=== PATIENT | male | born 1960 | race Caucasian/White ===

== ENCOUNTER 2019-08-18 23:29 | Inpatient (IN) ==
[2019-08-19] MEDS ORDERED: methylPREDNISolone 125 MG/2 ML VIAL IV STA (00:22)
[2019-08-19] MEDS ORDERED: ALBUT/IPRATROP 3MG/0.5MG NEB 3 ML VIAL NEB STA (00:22)
[2019-08-19] MEDS ORDERED: SODIUM CHLORIDE 0.9% 1000ML 1,000 ML IV ONE (00:22)
--- NOTE | 2019-08-19 01:00 | Emergency Department Note ---
Entered by Nettie Ramirez acting as a scribe for Jordyn Lacy DO History of Present Illness General Chief complaint: Shortness of Breath/Dyspnea Stated complaint: SHORT OF BREATH Time Seen by Provider: 08/18/19 23:36 Source: patient History of Present Illness Provider complaint: shortness of breath Onset (ago): hour(s) 4 Location: chest Severity: similar to prior episodes Pain Consistency: + now resolved Relieved By: + none Associated symptoms: + chest pain and + cough; no fever/chills The patient is a 58 year old male who presents to the Emergency Room with complaints of shortness of breath which started at 1999 today. The patient reports that he has been experiencing worsening cough for the past 2 weeks. He notes that he was here 3 weeks ago for similar symptoms. He states that he was prescribed Prednisone which temporarily relieved his symptoms. He notes that wh en his symptoms returned today he was given a two breathing treatment which temporarily relieved his symptoms. The patient reports that he believed that there was black mold in his initial [facility] cell at [facility] and after transitioning facilities he has had worsening symptoms. He notes that his he has been experiencing sinus congestions and chest tightness. He notes that it is difficulty to breath. He reports that he has been coughing up white mucous, but denies any blood. He denies any fever or chills. He states that after oxygen given in the EMS and here at the ED, he feels slightly better. 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 EMS report to nursing staff was that pt was in severe distress and hypoxic on presentation to the [facility]. When EMS arrived, his sats were in the 70's and he was placed on a NRB at 15 lpm which improved his oxygenation. Home Medications Home Medications Medication Instructions Recorded Confirmed Type amlodipine 10 mg PO DAILY 07/21/19 08/19/19 History atorvastatin 40 mg PO DAILY 07/21/19 08/19/19 History levalbuterol tartrate [Xopenex HFA] 2 inh INHALATION QID PRN 07/21/19 08/19/19 History lisinopril 20 mg PO DAILY 07/21/19 08/19/19 History metformin 1,000 mg PO BID 07/21/19 08/19/19 History montelukast [Singulair] 10 mg PO PM 07/21/19 08/19/19 History ipratropium-albuterol 3 ml INHALATION QID PRN 08/19/19 08/19/19 History sodium chloride [Poole Nasal] 2 spray INTRANASAL QID PRN 08/19/19 08/19/19 History Allergies Allergy/AdvReac Type Severity Reaction Status Date / Time No Known Allergies Allergy Unverified 08/19/19 00:06 Past Med/Surg History Medical History HTN (hypertension) Hyperlipidemia Type II diabetes mellitus Pneumonia (Acute) Social History Preferred Language: Japanese Beliefs That Will Affect Care: None Current Living Situation: Other Feels Safe at Home: Yes Safety Concerns: Feels Safe At This Time Smoking Status: Never smoker Hx Alcohol Use: No Hx Substance Use: No Review of Systems See HPI for pertinent positives & negatives. and A total of 10 systems reviewed and were otherwise negative Physical Exam Vital Signs Vital Signs - 24 hr 08/18/19 23:30 08/18/19 23:48 08/19/19 00:03 Temperature 36.7 C Temperature Source Oral Sepsis Recent Fever Within 48 Hours No Sepsis Action Taken by Nursing No Action Required Pulse Rate 128 H 122 H Pulse Rate [Right Finger] Pulse Rate from SpO2 Sensor 122 H Pulse Rhythm Regular Respiratory Rate 17 18 Respiratory Effort / Characteristics Non-Labored Respiratory Depth Normal Normal Respiratory Pattern Regular Blood Pressure 125/85 138/93 Blood Pressure Mean 98 108 Blood Pressure Position Sitting Pulse Oximetry 92 94 Oxygen Delivery Method Nasal Cannula Nasal Cannula Oxygen Flow Rate 3 3 08/19/19 00:30 08/19/19 00:40 08/19/19 01:00 Temperature Temperature Source Sepsis Recent Fever Within 48 Hours Sepsis Action Taken by Nursing Pulse Rate 115 H 114 H Pulse Rate [Right Finger] 113 H Pulse Rate from SpO2 Sensor 116 H 114 H Pulse Rhythm Respiratory Rate 14 18 20 Respiratory Effort / Characteristics Non-Labored Spontaneous Respiratory Depth Respiratory Pattern Blood Pressure 121/76 124/78 Blood Pressure Mean 91 93 Blood Pressure Position Pulse Oximetry 93 90 94 Oxygen Delivery Method Nasal Cannula Nasal Cannula Nasal Cannula Oxygen Flow Rate 3 3 3 GENERAL: alert, well appearing, well nourished, no distress, non-toxic EYE EXAM: normal conjunctiva, PERRL and EOM's grossly intact OROPHARYNX: no exudate, no erythema, lips, buccal mucosa, and tongue normal and mucous membranes are moist NECK: supple, no nuchal rigidity, no adenopathy, non-tender LUNGS: Coarse breath sounds bilaterally, no wheezes, rhonchi, or rales. Normal chest wall mechanics HEART: no murmurs, S1 normal and S2 normal ABDOMEN: abdomen soft, non-tender, normo-active bowel sounds, no masses, no rebound or guarding. BACK: Back is symmetrical on inspection and there is no deformity, no midline tenderness, no CVA tenderness. SKIN: no rashes and no bruising UPPER EXTREMITIES: upper extremities are grossly normal. LOWER EXTREMITIES: No pitting edema. NEURO EXAM: Normal sensorium, cranial nerves II-XII grossly intact, normal speech, no gross weakness of arms, no gross weakness of legs. Procedures Abscess I/D Site: upper extremity Side (if applicable): left Local Anesthetic: lidocaine 1% and with epi Amount of anesthesia used (mL): 6 Technique: incised with #11 blade Amount of fluid expressed (mL): 5 Irrigation: Yes Packing used?: iodoform Course 2350: The patient was evaluated in room A12B, and a complete history and physical examination were performed. 0132: I&D performed to abscess noted in left axilla with surrounding cellulitis. See procedure note. 0145: Pt updated on elevated troponin and plan. 0200: Case discussed with [facility] hospitalist, Dr. Castle. D-Dimer added after elevated troponin noted. He will follow-up to decide on type of CT chest to be ordered. Consultations Consultation #1: Case discussed with [facility] hospitalist, Dr. Castle, for additional evaluation and management. Time: 02:00 Administered Medications Albuterol (Duoneb) 3 ml NEB Q4R PRN PRN Reason: Shortness Of Breath Or Wheezing Stop: 09/18/19 03:45 Last Admin: 08/20/19 07:12 Dose: 3 ml Documented by: [id number] Admin: 08/19/19 22:07 Dose: 3 ml Documented by: [id number] Admin: 08/19/19 13:58 Dose: 3 ml Documented by: [id number] Admin: 08/19/19 07:37 Dose: 3 ml Documented by: [id number] Amlodipine Besylate (Norvasc) 10 mg PO DAILY LUCY Stop: 09/18/19 08:59 Last Admin: 08/19/19 08:57 Dose: 10 mg Documented by: [id number] Aspirin (Ecotrin Ectab) 81 mg PO QAM LUCY Stop: 09/18/19 08:59 Last Admin: 08/20/19 12:38 Dose: Not Given Documented by: [id number] Admin: 08/19/19 08:57 Dose: 81 mg Documented by: [id number] Atorvastatin Calcium (Lipitor) 40 mg PO DAILY LUCY Stop: 09/18/19 08:59 Last Admin: 08/19/19 08:58 Dose: 40 mg Documented by: [id number] Enoxaparin Sodium (Lovenox) 40 mg SQ Q24H LUCY Stop: 09/18/19 08:59 Last Admin: 08/19/19 08:58 Dose: 40 mg Documented by: [id number] Sodium Chloride (Nss 1000ml) 1,000 mls @ 100 mls/hr IV .Q10H LUCY Stop: 09/18/19 02:44 Last Admin: 08/20/19 12:01 Dose: 100 mls/hr Documented by: [id number] Infusion: 08/20/19 12:01 Dose: 100 mls/hr Documented by: [id number] Admin: 08/20/19 03:58 Dose: 100 mls/hr Documented by: [id number] Infusion: 08/20/19 01:45 Dose: 100 mls/hr Documented by: [id number] Admin: 08/19/19 15:45 Dose: 100 mls/hr Documented by: [id number] Infusion: 08/19/19 14:19 Dose: 100 mls/hr Documented by: [id number] Admin: 08/19/19 04:19 Dose: 100 mls/hr Documented by: [id number] Methylprednisolone 40 mg/ (Syringe) 0.64 mls @ 1.5 mls/min IV Q6H LUCY Stop: 09/18/19 05:59 Last Admin: 08/20/19 12:02 Dose: 1.5 mls/min Documented by: [id number] Admin: 08/20/19 06:10 Dose: 1.5 mls/min Documented by: [id number] Admin: 08/19/19 23:15 Dose: 1.5 mls/min Documented by: [id number] Admin: 08/19/19 18:39 Dose: 1.5 mls/min Documented by: [id number] Admin: 08/19/19 12:19 Dose: 1.5 mls/min Documented by: [id number] Admin: 08/19/19 06:13 Dose: 1.5 mls/min Documented by: [id number] Doxycycline Hyclate 100 mg/ (Dextrose) 110 mls @ 50 mls/hr IV Q12H LUCY; Protocol Stop: 08/29/19 11:59 Last Admin: 08/20/19 12:01 Dose: 50 mls/hr Documented by: [id number] Infusion: 08/20/19 01:37 Dose: 0 mls/hr Documented by: [id number] Admin: 08/19/19 23:19 Dose: 50 mls/hr Documented by: [id number] Infusion: 08/19/19 14:49 Dose: 0 mls/hr Documented by: [id number] Admin: 08/19/19 12:19 Dose: 50 mls/hr Documented by: [id number] Ceftriaxone Sodium 1,000 mg/ (Dextrose) 50 mls @ 100 mls/hr IV Q24H LUCY; Protocol Stop: 08/26/19 05:59 Last Infusion: 08/20/19 07:17 Dose: 0 mls/hr Documented by: [id number] Admin: 08/20/19 06:24 Dose: 100 mls/hr Documented by: [id number] Infusion: 08/19/19 06:49 Dose: 0 mls/hr Documented by: [id number] Admin: 08/19/19 06:07 Dose: 100 mls/hr Documented by: [id number] Heparin Sodium/Dextrose (Heparin Sodium/Dextrose) 25,000 units in 500 mls @ 28 mls/hr IV .[id number] LUCY; Protocol Stop: 09/18/19 10:44 Last Admin: 08/20/19 07:16 Dose: 1,400 units/hr, 28 mls/hr Documented by: [id number] Cosigned by: [id number] Titration: 08/20/19 06:54 Dose: 1,400 units/hr, 28 mls/hr Documented by: [id number] Cosigned by: [id number] Titration: 08/20/19 03:53 Dose: 1,400 units/hr, 28 mls/hr Documented by: [id number] Cosigned by: [id number] Titration: 08/20/19 02:58 Dose: 0 units/hr, 0 mls/hr Documented by: [id number] Cosigned by: [id number] Titration: 08/19/19 23:09 Dose: 1,600 units/hr, 32 mls/hr Documented by: [id number] Cosigned by: [id number] Titration: 08/19/19 19:58 Dose: 1,600 units/hr, 32 mls/hr Documented by: [id number] Cosigned by: [id number] Titration: 08/19/19 15:17 Dose: 1,300 units/hr, 26 mls/hr Documented by: [id number] Cosigned by: [id number] Admin: 08/19/19 12:35 Dose: 1,300 units/hr, 26 mls/hr Documented by: [id number] Cosigned by: [id number] Insulin Aspart (Novolog Flexpen) 0 units SC ACHS LUCY Stop: 09/18/19 04:44 Last Admin: 08/20/19 12:00 Dose: 8 units Documented by: [id number] Cosigned by: [id number] Admin: 08/20/19 08:24 Dose: 8 units Documented by: [id number] Cosigned by: [id number] Admin: 08/19/19 20:23 Dose: 6 units Documented by: [id number] Cosigned by: [id number] Admin: 08/19/19 17:02 Dose: 8 units Documented by: [id number] Cosigned by: [id number] Admin: 08/19/19 12:20 Dose: 7 units Documented by: [id number] Cosigned by: [id number] Admin: 08/19/19 08:59 Dose: 5 units Documented by: [id number] Cosigned by: [id number] Admin: 08/19/19 06:12 Dose: 4 units Documented by: [id number] Cosigned by: [id number] Ioversol (Optiray 320 125ml) 125 ml IV ONCE PRN PRN Reason: Interaction Checking Stop: 08/23/19 03:25 Last Admin: 08/19/19 03:26 Dose: 97 ml Documented by: [id number] Lisinopril (Zestril) 20 mg PO DAILY LUCY Stop: 09/18/19 08:59 Last Admin: 08/19/19 08:58 Dose: 20 mg Documented by: [id number] Montelukast Sodium (Singulair) 10 mg PO PM LUCY Stop: 09/18/19 20:59 Last Admin: 08/19/19 20:23 Dose: 10 mg Documented by: [id number] Pantoprazole Sodium (Protonix) 40 mg PO QAM LUCY Stop: 09/18/19 08:59 Last Admin: 08/19/19 08:57 Dose: 40 mg Documented by: [id number] Discontinued Medications Albuterol (Duoneb) 3 ml NEB NOW STA Stop: 08/19/19 00:23 Last Admin: 08/19/19 00:38 Dose: 3 ml Documented by: [id number] Aspirin (Ecotrin) 325 mg PO NOW STA Stop: 08/19/19 02:06 Last Admin: 08/19/19 03:10 Dose: 325 mg Documented by: [id number] Doxycycline Hyclate (Vibramycin) 100 mg PO NOW STA Stop: 08/19/19 01:40 Last Admin: 08/19/19 02:07 Dose: 100 mg Documented by: [id number] Sodium Chloride (Nss 1000ml) 1,000 mls @ 999 mls/hr IV .Q1H1M ONE Stop: 08/19/19 01:22 Last Infusion: 08/19/19 02:17 Dose: 0 mls/hr Documented by: [id number] Admin: 08/19/19 01:03 Dose: 999 mls/hr Documented by: [id number] Magnesium Sulfate/Dextrose (Magnesium Sulfate / D5w) 1 gm in 100 mls @ 100 mls/hr IV ONE ONE Stop: 08/19/19 03:04 Last Infusion: 08/19/19 03:52 Dose: 0 mls/hr Documented by: [id number] Admin: 08/19/19 02:09 Dose: 100 mls/hr Documented by: [id number] Heparin Sodium (Porcine) 6,000 (units/ Syringe) 6 mls @ 10 mls/min IV ONE ONE Stop: 08/19/19 19:46 Last Admin: 08/19/19 19:57 Dose: 10 mls/min Documented by: [id number] Cosigned by: [id number] Insulin Aspart (Novolog Flexpen) 5 units SC ONE ONE Stop: 08/20/19 03:05 Last Admin: 08/20/19 03:21 Dose: 5 units Documented by: [id number] Cosigned by: [id number] Insulin Glargine (Lantus Solostar Pen) 10 units SC DAILY LUCY Stop: 09/18/19 04:44 Last Admin: 08/19/19 06:12 Dose: 10 units Documented by: [id number] Cosigned by: [id number] Insulin Glargine (Lantus Solostar Pen) 8 units SC BID LUCY Stop: 09/18/19 20:59 Last Admin: 08/19/19 21:07 Dose: 8 units Documented by: [id number] Cosigned by: [id number] Insulin Glargine (Lantus Solostar Pen) 10 units SC BID LUCY Stop: 09/19/19 08:59 Last Admin: 08/20/19 08:25 Dose: 10 units Documented by: [id number] Cosigned by: [id number] Insulin Human Regular (Novolin R U-100 Per Unit) 8 units SC NOW STA Stop: 08/19/19 01:49 Last Admin: 08/19/19 02:06 Dose: 8 units Documented by: [id number] Cosigned by: [id number] Lidocaine/Epinephrine (Xylocaine/Epinephrine 1%) Confirm Administered Dose 20 ml .ROUTE .STK-MED ONE Stop: 08/19/19 01:24 Last Admin: 08/19/19 01:24 Dose: 20 ml Documented by: [id number] Methylprednisolone (Solumedrol) 60 mg IV NOW STA Stop: 08/19/19 00:23 Last Admin: 08/19/19 01:02 Dose: 60 mg Documented by: [id number] Oxymetazoline HCl (Afrin 0.05%) 2 sprays FABIOLA PREOP ONE Stop: 08/20/19 06:01 Last Admin: 08/20/19 06:10 Dose: 2 sprays Documented by: [id number] Medical Decision Making Differential Diagnosis Differential diagnosis: Etiologies such as infections, reactive airway disease, pneumonia, pneumothorax, COPD, CHF, cardiac ischemia, pulmonary embolism, musculoskeletal, gastrointestinal, as well as others were entertained. Medical Records Attestation: I reviewed the patient's medical records. Home Medications Current Medication List: was personally reviewed by me Laboratory Data Attestation: I reviewed the patient's lab results. Result diagrams: 08/20/19 02:11 08/20/19 02:11 Lab Results 08/19/19 08/19/19 08/19/19 Range/Units 01:01 01:01 01:01 WBC 14.11 H (4.8-10.8) K/uL RBC 4.54 L (4.7-6.1) M/uL Hgb 13.6 L (14.0-18.0) g/dL Hct 38.8 L (42-52) % MCV 85.5 (80-100) fL MCH 30.0 (25-34) pg MCHC 35.1 (32-36) g/dL RDW Std Deviation 37.5 (36.4-46.3) fL RDW Coeff of Rose Marie 12.1 (11.5-14.5) % Plt Count 360 (130-400) K/uL MPV 9.4 (7.4-10.4) fL Immature Gran % (Auto) 0.4 % Neut % (Auto) 82.6 % Lymph % (Auto) 9.6 % [place] % (Auto) 6.6 % Eos % (Auto) 0.7 % Baso % (Auto) 0.1 % Immature Gran # (Auto) 0.05 H (0.00-0.02) K/uL Neut # (Auto) 11.66 H (1.4-6.5) K/uL Lymph # (Auto) 1.36 (1.2-3.4) K/uL [place] # (Auto) 0.93 H (0.11-0.59) K/uL Eos # (Auto) 0.10 (0-0.5) K/uL Baso # (Auto) 0.01 (0-0.2) K/uL D-Dimer 1840 H* (0-500) ug/L FEU Sodium 133 L (136-145) mmol/L Potassium 4.4 (3.5-5.1) mmol/L Chloride 99 (98-107) mmol/L Carbon Dioxide 26 (21-32) mmol/L Anion Gap 8.0 (3-11) BUN 13 (7-18) mg/dl Creatinine 0.91 (0.6-1.4) mg/dl Est Cr Clr Drug Dosing 83.2 ml/min Est GFR ( Amer) 107.3 Est GFR (Non-Af Amer) 92.6 BUN/Creatinine Ratio 13.9 (10-20) Glucose 405 H* (70-99) mg/dl POC Glucose (70-99) Calcium 9.5 (8.5-10.1) mg/dl Magnesium 1.5 L (1.8-2.4) mg/dl Total Bilirubin 0.5 (0.2-1) mg/dl AST 9 L (15-37) U/L ALT 16 (12-78) U/L Alkaline Phosphatase 98 (45-117) U/L Troponin I 0.176 H* (0-0.045) ng/ml NT-Pro-B Natriuret Pep 86 (0-900) pg/ml Total Protein 6.8 (6.4-8.2) gm/dl Albumin 3.6 (3.4-5.0) gm/dl Globulin 3.2 (2.5-4.0) gm/dl Albumin/Globulin Ratio 1.1 (0.9-2) Beta-Hydroxybutyric Acd 8.26 H (0.2-2.81) mg/dl Procalcitonin (0-0.5) ng/ml 08/19/19 08/19/19 Range/Units 01:01 02:06 WBC (4.8-10.8) K/uL RBC (4.7-6.1) M/uL Hgb (14.0-18.0) g/dL Hct (42-52) % MCV (80-100) fL MCH (25-34) pg MCHC (32-36) g/dL RDW Std Deviation (36.4-46.3) fL RDW Coeff of Rose Marie (11.5-14.5) % Plt Count (130-400) K/uL MPV (7.4-10.4) fL Immature Gran % (Auto) % Neut % (Auto) % Lymph % (Auto) % [place] % (Auto) % Eos % (Auto) % Baso % (Auto) % Immature Gran # (Auto) (0.00-0.02) K/uL Neut # (Auto) (1.4-6.5) K/uL Lymph # (Auto) (1.2-3.4) K/uL [place] # (Auto) (0.11-0.59) K/uL Eos # (Auto) (0-0.5) K/uL Baso # (Auto) (0-0.2) K/uL D-Dimer (0-500) ug/L FEU Sodium (136-145) mmol/L Potassium (3.5-5.1) mmol/L Chloride (98-107) mmol/L Carbon Dioxide (21-32) mmol/L Anion Gap (3-11) BUN (7-18) mg/dl Creatinine (0.6-1.4) mg/dl Est Cr Clr Drug Dosing ml/min Est GFR ( Amer) Est GFR (Non-Af Amer) BUN/Creatinine Ratio (10-20) Glucose (70-99) mg/dl POC Glucose 373 H* (70-99) Calcium (8.5-10.1) mg/dl Magnesium (1.8-2.4) mg/dl Total Bilirubin (0.2-1) mg/dl AST (15-37) U/L ALT (12-78) U/L Alkaline Phosphatase (45-117) U/L Troponin I (0-0.045) ng/ml NT-Pro-B Natriuret Pep (0-900) pg/ml Total Protein (6.4-8.2) gm/dl Albumin (3.4-5.0) gm/dl Globulin (2.5-4.0) gm/dl Albumin/Globulin Ratio (0.9-2) Beta-Hydroxybutyric Acd (0.2-2.81) mg/dl Procalcitonin 0.07 (0-0.5) ng/ml Imaging Data My Impression: X-ray: I interpreted the following studies. Chest: A single view study of the chest was reviewed and was negative for cardiomegaly, effusion, pulmonary edema, or wide mediastinum, questionable early left evolving infiltrate. Radiologist's Impression: Radiology results as stated below per my review and the radiologist's interpretation: ECG Data Attestation: I personally reviewed and interpreted this ECG as follows: Indication: + SOB/dyspnea Rate (beats per minute): 129 Rhythm: + sinus tachycardia ECG [place]: + Normal ECG Findings: + Other (Normal intervals, no ischemic changes); no PACs and no PVCs Blood Pressure Blood Pressure Findings: Elevated blood pressure MDM Narrative Pt here with respiratory distress and tachycardia. Pt was given neb by [facility] and by EMS and reports he is feeling improved but not back to normal. Labs sent and cxr performed. During a repeat exam, pt also showed me two abscesses in left axilla, one of which appeared larger and amenable to I&D. Pt tolerated this procedure well. No hx of MRSA but pt is a diabetic. Due to this and hope of being able to discharge patient initially, he was given a dose of doxycycline to cover the cellulitis as well as possible respiratory infection. Pt given additional neb and IV solumedrol here, and felt breathing improved. Pt initially markedly tachycardic, however with IVF and decreased WOB, tachycardia was improving. Troponin resulted elevated and pt with risk factors for ACS. No other risk factors for PE, however cannot r/o with PERC, dimer added. Possible elevated from infection vs increased WOB/hypoxia described by EMS initially. No active chest pain or EKG changes. Pt given as ASA. Pt oxygen slowly had been weaned down while in the ER and at time of discussion with hospitalist, was 2-3 lpm via [place]. Hospitalist will follow-up dimer to decide on CT. I do not suspect tamponade, effusion, pericarditis/myocarditis. Leukocytosis from infection vs stress. Pt with several resp symptoms and hx of COPD, likely copd flare or occult pneumonia contributing to increased WOB. Pt hasn't yet been scheduled for pulmonology follow-up thru nursing home yet. VS stable while in the ER. No evidence of bacteremia/sepsis. Impression & Plan Acute dyspnea, Tachycardia, Elevated troponin, Cellulitis, Abscess, H ypomagnesemia Discharge Plan Visit Data *Final* Discharge Date/Time: 08/19/19 03:07 Chief Complaint: Shortness of Breath/Dyspnea Stated Complaint: SHORT OF BREATH ED Provider: Jordyn Lacy Discharge Problem: Acute dyspnea, Tachycardia, Elevated troponin, Cellulitis, Abscess, Hypomagnesemia Patient Disposition: Admitted As Inpatient Condition: Good Discharge Instructions Interventions: ED Discharge Assessment Last Done: 08/19/19 03:07 Discharge Problem: Cellulitis Qualifiers: Site of cellulitis: extremity Site of cellulitis of extremity: axilla Laterality: left Qualified Code(s): L03.112 - Cellulitis of left axilla The scribe's documentation has been prepared under my direction and personally reviewed by me in its entirety. I confirm that the note above accurately reflects all work, treatment, procedures, and medical decision making performed by me.
[2019-08-19 01:18] LABS: Basophils # (auto) 0.01 K/uL (0-0.2); Basophils % (auto) 0.1 %; Eosinophils % (auto) 0.7 %; Hematocrit (blood only) 38.8 % (42-52); Hemoglobin 13.6 g/dL (14.0-18.0); Immature Granulocytes # (auto) 0.05 K/uL (0.00-0.02); Immature Granulocytes % (auto) 0.4 %; Lymphocytes # (auto) 1.36 K/uL (1.2-3.4); Lymphocytes % (auto) 9.6 %; Mean Corpuscular Hgb Conc 35.1 g/dL (32-36); Mean Corpuscular Volume 85.5 fL (80-100); Mean Platelet Volume 9.4 fL (7.4-10.4); Monocytes # (auto) 0.93 K/uL (0.11-0.59); Monocytes % (auto) 6.6 %; Neutrophils # (auto) 11.66 K/uL (1.4-6.5); Neutrophils % (auto) 82.6 %; Platelet Count 360 K/uL (130-400); RDW Coefficient of Variation 12.1 % (11.5-14.5); RDW Standard Deviation 37.5 fL (36.4-46.3); Red Blood Count 4.54 M/uL (4.7-6.1); White Blood Count 14.11 K/uL (4.8-10.8)
[2019-08-19] MEDS ORDERED: LIDOCAINE/EPINEPHRINE 1% 20 ML VIAL ONE (01:23)
[2019-08-19] MEDS ORDERED: DOXYCYCLINE HYCLATE 100 MG CAP PO STA (01:39)
[2019-08-19 01:44] LABS: Albumin Globulin Ratio 1.1 (0.9-2); Albumin Level 3.6 gm/dl (3.4-5.0); BUN Creatinine Ratio 13.9 (10-20); Bilirubin,Total 0.5 mg/dl (0.2-1); Calcium 9.5 mg/dl (8.5-10.1); Creatinine Clr Calc Pharmacy 83.2 ml/min; Est GFR (African American) 107.3; Est GFR (Non-African American) 92.6; Globulin 3.2 gm/dl (2.5-4.0); Magnesium 1.5 mg/dl (1.8-2.4); Potassium 4.4 mmol/L (3.5-5.1); Total Protein 6.8 gm/dl (6.4-8.2); Troponin I 0.176 ng/ml (0-0.045)
[2019-08-19] MEDS ORDERED: NovoLIN-R INSULIN PER UNIT CHARGE SC STA (01:48)
[2019-08-19] MEDS ORDERED: MAGNESIUM SULFATE / D5W 1 GM/100 ML BAG IV ONE (02:05)
[2019-08-19] MEDS ORDERED: ASPIRIN 325 MG ECTAB PO STA (02:05)
[2019-08-19 02:06] LABS: Beta-Hydroxybutyrate 8.26 mg/dl (0.2-2.81)
[2019-08-19 02:39] LABS: D Dimer 1840 ug/L FEU (0-500)
[2019-08-19] MEDS ORDERED: OPTIRAY 320 125ml IV PRN (03:26)
[2019-08-19] MEDS ORDERED: GLUCAGON FOR INJ 1 MG VIAL SQ PRN (03:46)
[2019-08-19] MEDS ORDERED: NITROGLYCERIN SL 0.4 MG/TAB TAB SL PRN (03:46)
[2019-08-19] MEDS ORDERED: GLUCOSE 10 TABS/TUBE PO PRN (03:46)
[2019-08-19] MEDS ORDERED: GLUCOSE 40% GEL 15 GM TUBE PO PRN (03:46)
[2019-08-19] MEDS ORDERED: CARBOHYDRATES FOR HYPOGLYCEMIA PO PRN (03:46)
[2019-08-19] MEDS ORDERED: DEXTROSE 50% 50 ML SYRINGE IV PRN (03:46)
[2019-08-19] MEDS ORDERED: ACETAMINOPHEN 325 MG TAB PO PRN (03:46)
[2019-08-19] MEDS ORDERED: ONDANSETRON INJ 2 MG/ML 2 ML VIAL IV PRN (03:46)
[2019-08-19] MEDS ORDERED: SODIUM CHLORIDE 0.65% NA SOLN 45 ML (OCEAN) PRN (03:46)
[2019-08-19] MEDS: SODIUM CHLORIDE 0.9% 1000ML 1,000 ML IV SCH ×2 (04:19→15:45)
--- NOTE | 2019-08-19 04:42 | History & Physical Report ---
Date of Service August 19, 2019 Assessment & Plan (1) Atypical pneumonia: IV Doxycycline I added Rocephin for further coverage Continue IV Solumedrol as it does appear that steroids previously gave benefit for patients symptoms. I did not auscultate any wheezing on my exam. check Legionella antigen urine check Mycoplasma IgG and IgM Pulmonology consult CTA chest ordered. (2) Abscess of left axilla: I&D performed in the ED IV Doxycycline IV Rocephin (3) Hypomagnesemia: Replaced in the ED Will re-check in the am. (4) Elevated troponin: Trend trops Echo ordered Never had cardiac workup He did not have chest pain therefore suspect this is related to demand ischemia. (5) Type II diabetes mellitus: Hold Metformin as he received IV dye Sliding scale insulin coverage Lantus 10 units ordered for now. (6) HTN (hypertension): Continue amlodipine and lisinopril (7) Hyperlipidemia: continue atorvastatin. History of Present Illness 58 y/o male presented to the Emergency Room with complaint of shortness of breath. He has been experiencing worsening productive (white sputum) cough for the past 2 weeks. He notes that he was seen in this ED 3 weeks prior and was diagnosed with pneumonia and discharged on prednisone taper and Levaquin. He did feel improved for about a week to which symptoms returned. No F/C, chest pain, abdominal pain, N/V/D. 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 He had previously smoked marijuana, but not cigarettes. Primary Care Provider: FRANCESCO Hutton Allergies Allergy/AdvReac Type Severity Reaction Status Date / Time No Known Allergies Allergy Unverified 08/19/19 00:06 Home Medications Home Medications Medication Instructions Recorded Confirmed Type amlodipine 10 mg PO DAILY 07/21/19 08/19/19 History atorvastatin 40 mg PO DAILY 07/21/19 08/19/19 History levalbuterol tartrate [Xopenex HFA] 2 inh INHALATION QID PRN 07/21/19 08/19/19 History lisinopril 20 mg PO DAILY 07/21/19 08/19/19 History metformin 1,000 mg PO BID 07/21/19 08/19/19 History montelukast [Singulair] 10 mg PO PM 07/21/19 08/19/19 History ipratropium-albuterol 3 ml INHALATION QID PRN 08/19/19 08/19/19 History sodium chloride [[place] Nasal] 2 spray INTRANASAL QID PRN 08/19/19 08/19/19 History Past Med/Surg History Medical History HTN (hypertension) Hyperlipidemia Type II diabetes mellitus Pneumonia (Acute) Social History Preferred Language: Italian Beliefs That Will Affect Care: None Current Living Situation: Other Feels Safe at Home: Yes Safety Concerns: Feels Safe At This Time Smoking Status: Never smoker Hx Alcohol Use: No Hx Substance Use: No Review of Systems Review of Systems: Constitutional- no fever; no weight loss Eyes- no acute visual changes ENT- + nasal drainage; no pharyngitis Pulmonary- As in HPI Cardiac- no chest pain, no palpitations, no orthopnea, no dependent edema GI- no nausea, no vomiting, no diarrhea, no melena, no hematochezia - no dysuria, no hematuria Musculoskeletal- no arthralgias, no myalgias Derm- no rashes, no new skin lesions, no changing skin lesions Hematologic- no unusual bruising, no unusual bleeding Lymphatics- no adenopathy Endocrine- no polyuria or polydipsia; no heat or cold intolerance Neuro- no headaches, no focal neurologic symptoms Psych- + anxiety with SOB, no depression Physical Exam Physical Exam: General- adult male, NAD Head- atraumatic Eyes- PERRL, EOMI, anicteric ENT- oropharynx clear Neck- supple, no JVD, no adenopathy, no thyromegaly; Lungs- Essentially clear, no R/R/W. Heart- regular rhythm; no murmur, no gallop, no rub appreciated Abdomen- normal bowel sounds, soft, nontender. Extremities- no pretibial edema, no calf tenderness; peripheral pulses intact Neuro- alert, oriented x 3; PERRL, EOMI; generation mechanic helper II-XII grossly intact, NON-focal. Skin- warm & dry. Left axilla small abscess s/p I&D in the ED. Results & Data Vital Signs (Past 12 Hours) Vital Signs Temp Pulse Pulse Resp BP BP Pulse Ox 08/19/19 03:30 36.8 C 97 H 20 123/79 97 08/19/19 03:07 97 H 18 120/87 98 08/19/19 02:30 103 H 22 121/81 97 08/19/19 02:00 106 H 30 H 129/96 97 08/19/19 01:30 114 H 22 152/96 H 97 08/19/19 01:00 114 H 20 124/78 94 08/19/19 00:40 113 H 18 90 08/19/19 00:30 115 H 14 121/76 93 08/19/19 00:03 122 H 18 138/93 94 08/18/19 23:30 36.7 C 128 H 17 125/85 92 Laboratory Results Laboratory Results WBC 14.11 K/uL (4.8-10.8) H 08/19/19 01:01 RBC 4.54 M/uL (4.7-6.1) L 08/19/19 01:01 Hgb 13.6 g/dL (14.0-18.0) L 08/19/19 01:01 Hct 38.8 % (42-52) L 08/19/19 01:01 MCV 85.5 fL (80-100) 08/19/19 01:01 MCH 30.0 pg (25-34) 08/19/19 01:01 MCHC 35.1 g/dL (32-36) 08/19/19 01:01 RDW Std Deviation 37.5 fL (36.4-46.3) 08/19/19 01:01 RDW Coeff of Rose Marie 12.1 % (11.5-14.5) 08/19/19 01:01 Plt Count 360 K/uL (130-400) 08/19/19 01:01 MPV 9.4 fL (7.4-10.4) 08/19/19 01:01 Immature Gran % (Auto) 0.4 % 08/19/19 01:01 Neut % (Auto) 82.6 % 08/19/19 01:01 Lymph % (Auto) 9.6 % 08/19/19 01:01 [place] % (Auto) 6.6 % 08/19/19 01:01 Eos % (Auto) 0.7 % 08/19/19 01:01 Baso % (Auto) 0.1 % 08/19/19 01:01 Immature Gran # (Auto) 0.05 K/uL (0.00-0.02) H 08/19/19 01:01 Neut # (Auto) 11.66 K/uL (1.4-6.5) H 08/19/19 01:01 Lymph # (Auto) 1.36 K/uL (1.2-3.4) 08/19/19 01:01 [place] # (Auto) 0.93 K/uL (0.11-0.59) H 08/19/19 01:01 Eos # (Auto) 0.10 K/uL (0-0.5) 08/19/19 01:01 Baso # (Auto) 0.01 K/uL (0-0.2) 08/19/19 01:01 D-Dimer 1840 ug/L FEU (0-500) H* 08/19/19 01:01 Sodium 133 mmol/L (136-145) L 08/19/19 01:01 Potassium 4.4 mmol/L (3.5-5.1) 08/19/19 01:01 Chloride 99 mmol/L (98-107) 08/19/19 01:01 Carbon Dioxide 26 mmol/L (21-32) 08/19/19 01:01 Anion Gap 8.0 (3-11) 08/19/19 01:01 BUN 13 mg/dl (7-18) 08/19/19 01:01 Creatinine 0.91 mg/dl (0.6-1.4) 08/19/19 01:01 Est Cr Clr Drug Dosing 83.2 ml/min 08/19/19 01:01 Est GFR ( Amer) 107.3 08/19/19 01:01 Est GFR (Non-Af Amer) 92.6 08/19/19 01:01 BUN/Creatinine Ratio 13.9 (10-20) 08/19/19 01:01 Glucose 405 mg/dl (70-99) H* 08/19/19 01:01 POC Glucose 377 (70-99) H* 08/19/19 03:09 Calcium 9.5 mg/dl (8.5-10.1) 08/19/19 01:01 Magnesium 1.5 mg/dl (1.8-2.4) L 08/19/19 01:01 Total Bilirubin 0.5 mg/dl (0.2-1) 08/19/19 01:01 AST 9 U/L (15-37) L 08/19/19 01:01 ALT 16 U/L (12-78) 08/19/19 01:01 Alkaline Phosphatase 98 U/L (45-117) 08/19/19 01:01 Troponin I 0.176 ng/ml (0-0.045) H* 08/19/19 01:01 NT-Pro-B Natriuret Pep 86 pg/ml (0-900) 08/19/19 01:01 Total Protein 6.8 gm/dl (6.4-8.2) 08/19/19 01:01 Albumin 3.6 gm/dl (3.4-5.0) 08/19/19 01:01 Globulin 3.2 gm/dl (2.5-4.0) 08/19/19 01:01 Albumin/Globulin Ratio 1.1 (0.9-2) 08/19/19 01:01 Beta-Hydroxybutyric Acd 8.26 mg/dl (0.2-2.81) H 08/19/19 01:01 Code Status & VTE Plan VTE Prophylaxis Plan VTE Prophylaxis will be ordered: Yes PG Care Time/CCT Total # of Minutes Spent Total Time Spent: 65 Total Time Spent with Patient: Total time spent is greater than 50% in coordin ation of care (as documented) at patient's floor/unit and/or counseling patient:
[2019-08-19] MEDS ORDERED: INSULIN GLARGINE SOLOSTAR 100 UNITS/ML 3 ML PEN SC SCH ×2 (04:45→21:00)
[2019-08-19] MEDS: cefTRIAXone SODIUM 1,000 MG in DEXTROSE 5% 50 ML IV SCH (06:07)
[2019-08-19] MEDS: INSULIN ASPART 100 UNITS/ML 3 ML PEN SC SCH ×5 (06:12→20:23)
[2019-08-19] MEDS: methylPREDNISolone 40 MG in SYRINGE 0 ML IV SCH ×4 (06:13→23:15)
--- NOTE | 2019-08-19 06:13 | CT Scan Report ---
CT angio chest PE protocol CT DOSE: 366.82 mGy.cm HISTORY: Dyspnea SOB, elelvated D-dimer TECHNIQUE: Multiaxial CT images of the chest were performed following the intravenous administration of contrast to evaluate the pulmonary arteries. Maximal intensity projection images were also obtaine d. A dose lowering technique was utilized adhering to the principles of ALARA. COMPARISON STUDY: 07/21/2019 FINDINGS: Normal thoracic aorta. Pulmonary vasculature enhances appropriately. No significant filling defects. Mild mediastinal and hilar adenopathy unchanged. Mild to moderate peribronchial thickening throughout the mid and lower lung regions bilaterally. IMPRESSION: 1. No evidence for pulmonary embolus. 2. Groundglass and reticular nodular/interstitial change throughout the mid to lower lung regions jesus aterally. 3. This may relate to an atypical inflammatory process, bronchitis, 4. No evidence for consolidative infiltrate. 5. Unchanged reactive mediastinal and hilar jesus change. The above report was generated using voice recognition software. It may contain grammatical, syntax or spelling errors. Electronically signed by: Nam Hernandez M.D. 08/19/2019 6:12 AM
--- NOTE | 2019-08-19 07:00 | XRay Report ---
XR chest 1V portable CLINICAL HISTORY: 58 years-old Male presenting with sob. TECHNIQUE: Portable upright AP view of the chest was obtained. COMPARISON: 07/21/2018. FINDINGS: Cardiomediastinal silhouette normal. Mildly coarsened lung markings. No focal lung opacity apart from mild added reticular opacities at the lung bases. No large effusion or pneumothorax. Degenerative ch anges of the thoracic spine. Degenerative changes of the glenohumeral joints bilaterally. Posttraumat ic deformities of the clavicles. Upper abdomen normal. IMPRESSION: 1. Coarsened interstitial markings could suggest underlying mild inflammatory process or chronic wayne g disease. No focal infiltrate to suggest pneumonia. Electronically signed by: Rudolph Cain M.D. 08/19/2019 6:59 AM
[2019-08-19] MEDS: ALBUT/IPRATROP 3MG/0.5MG NEB 3 ML VIAL NEB PRN ×3 (07:37→22:07)
[2019-08-19] MEDS: PANTOprazole 40 MG TAB PO SCH (08:57)
[2019-08-19] MEDS: AMLODIPINE BESYLATE 5 MG TAB PO SCH (08:57)
[2019-08-19] MEDS: ASPIRIN 81 MG ECTAB PO SCH (08:57)
[2019-08-19] MEDS: ATORVASTATIN 40 MG TAB PO SCH (08:58)
[2019-08-19] MEDS: LISINOPRIL 20 MG TAB PO SCH (08:58)
[2019-08-19] MEDS ORDERED: ENOXAPARIN INJ 40 MG/0.4 ML SYR SQ SCH (09:00)
--- NOTE | 2019-08-19 10:01 | Pulmonary Consultation ---
Date of Consultation August 19, 2019 Assessment & Plan (1) Abnormal high resolution computed tomography of chest: Seems that the patient has had symptoms for several months with minimal resolution. This seems to be a steroid responsive process. He does have some bronchial wall thickening and reticulonodular changes. He also has reactive lymphadenopathy. The differential here is broad including idiopathic interstitial pneumonia, sarcoid and atypical infections. I will perform broncho scopy tomorrow with BAL and possible biopsies. We will also perform an endobronchial ultrasound with transbronchial needle aspiration of the mediastinal lymph nodes to evaluate for possible sarcoid or malignancy. Although, I think malignancy is much less likely. Will order for an IgE level as well as his absolute eosinophil count was 2229 on admission. This process may also represent an allergic bronchopulmonary aspergillus like process. He will need outpatient pulmonary function tests and follow-up with pulmonary after discharge. (2) Wheezing: (3) Acute hypoxemic respiratory failure: (4) Mediastinal lymphadenopathy: History of Present Illness Reason for Consultation: Respiratory failure Attending Physician: Scooter Carrillo History of Present Illness This is a 58-year-old male with a past medical history of hypertension, diabetes and hyperlipidemia who presented to the hospital due to worsening shortness of breath and wheeze. Patient notes that since November of this year he has had coughing admixed with sputum and significant wheezing. He notes that he was on a course of prednisone in May with some amoxicillin that seemed to improve his wheezing. However, once the prednisone wore off his recent increased again. He was recently in the emergency department and was given a course of prednisone at that time as well, but it seems like it was not as effective as it was initially. He denies any fevers, chills, weight loss or night sweats. He denies any tobacco abuse. He was smoking marijuana up until he was initially incarcerated. He also endorses a history of cocaine use. Den ies any history of respiratory issues when he was younger. Denies any chest pain. Denies any rashes or joint aches. Does have some rhinorrhea. He also has some sinus symptoms. Previously worked in construction. He had a CT chest performed on 07/21/2019 demonstrated bronchial wall thickening with hazy peribronchovascular groundglass opacities. There is also mediastinal lymphadenopathy noted at that time. CT scan today indicates continued groundglass changes and reticulonodular interstitial changes throughout the mid to lower lung regions bilaterally. There is also mediastinal adenopathy noted. As noted previously he has been on a course of amoxicillin and Levaquin. He is also been on 2 courses of steroids prior to this hospitalization. He has been started on doxycycline and ceftriaxone along with 40 mg every 6 hours of Solu- Medrol. Allergies Allergy/AdvReac Type Severity Reaction Status Date / Time No Known Allergies Allergy Unverified 08/19/19 00:06 Home Medications Home Medications Medication Instructions Recorded Confirmed Type amlodipine 10 mg PO DAILY 07/21/19 08/19/19 History atorvastatin 40 mg PO DAILY 07/21/19 08/19/19 History levalbuterol tartrate [Xopenex HFA] 2 inh INHALATION QID PRN 07/21/19 08/19/19 History lisinopril 20 mg PO DAILY 07/21/19 08/19/19 History metformin 1,000 mg PO BID 07/21/19 08/19/19 History montelukast [Singulair] 10 mg PO PM 07/21/19 08/19/19 History ipratropium-albuterol 3 ml INHALATION QID PRN 08/19/19 08/19/19 History sodium chloride [[place] Nasal] 2 spray INTRANASAL QID PRN 08/19/19 08/19/19 History Patient History Medical History HTN (hypertension) Hyperlipidemia Type II diabetes mellitus Pneumonia (Acute) Social History Preferred Language: Georgian Beliefs That Will Affect Care: None Current Living Situation: Other Feels Safe at Home: Yes Safety Concerns: Feels Safe At This Time Smoking Status: Never smoker Hx Alcohol Use: No Hx Substance Use: No Review of Systems Review of Systems: All systems reviewed & are unremarkable except as noted in HPI & below Physical Exam Constitutional: WD/WN, vitals as above In fci shackles Eyes: PERRL, conjunctivae normal, anicteric sclerae ENMT: external ear and nose normal, oropharynx normal Neck: trachea midline, no thyromegaly Respiratory: normal respiratory effort Bilateral expiratory wheezes Cardiovascular: RRR, no murmur, no edema Gastrointestinal (Abdomen): normal bowel sounds, soft, nontender, no hepatosplenomegaly Musculoskeletal: no cyanosis or clubbing, extremities motor strength 5/5 Skin: no rashes, warm and dry Neurologic: PERRL, EOMI, accommodation nl, no face palsy, no dysarthria Psychiatric: A+Ox3, euthymic affect Lymphatic: no cervical or axillary lymphadenopathy Results & Data Vital Signs (Past 12 Hours) Vital Signs Temp Pulse Pulse Resp BP BP Pulse Ox 08/19/19 07:48 89 08/19/19 07:39 79 20 94 08/19/19 07:33 97.5 F L 96 H 20 124/88 94 08/19/19 04:36 94 H 08/19/19 03:30 98.2 F 97 H 20 123/79 97 08/19/19 03:07 97 H 18 120/87 98 08/19/19 02:30 103 H 22 121/81 97 08/19/19 02:00 106 H 30 H 129/96 97 08/19/19 01:30 114 H 22 152/96 H 97 08/19/19 01:00 114 H 20 124/78 94 08/19/19 00:40 113 H 18 90 08/19/19 00:30 115 H 14 121/76 93 08/19/19 00:03 122 H 18 138/93 94 08/18/19 23:30 98.1 F 128 H 17 125/85 92 I personally reviewed the patient's pertinent labs and chest imaging. PG Care Time/CCT Total # of Minutes Spent Total Time Spent with Patient: Total time spent is greater than 50% in coordination of care (as documented) at patient's floor/unit and/or counseling patient:
[2019-08-19 10:04] LABS: Magnesium 1.9 mg/dl (1.8-2.4); Troponin I 0.888 ng/ml (0-0.045)
[2019-08-19] MEDS ORDERED: Heparin IV Standard *NO* Bolus IV SCH (10:20)
[2019-08-19] MEDS: DOXYCYCLINE HYCLATE 100 MG in DEXTROSE 5% 100 ML IV SCH ×2 (12:19→23:19)
[2019-08-19 12:33] LABS: INR 1.1 (0.9-1.1); Partial Thromboplastin Time 26.2 Seconds (21.0-31.0); Prothrombin Time 11.3 Seconds (9.0-12.0)
[2019-08-19] MEDS: HEPARIN SODIUM/DEXTROSE 25,000 UNITS/500 ML BAG IV SCH (12:35)
--- NOTE | 2019-08-19 15:30 | Cardiology Consultation ---
Date of Consultation August 19, 2019 Assessment & Plan (1) Elevated troponin: Suspect his mild elevation troponin is related to supply demand mismatch at the diet his presentation. He was significantly tachycardic and does demonstrate borderline LVH on his echocardiogram. Would simply trend cardiac enzymes for now. (2) HTN (hypertension): Adequate control on current medical regimen. He does demonstrate borderline LVH on his echocardiogram. (3) Hyperlipidemia: Continue atorvastatin. History of Present Illness Attending Physician: Scooter Carrillo History of Present Illness Mr. Billy is a 58-year-old male admitted earlier today with a pulmonary process. A troponin I level was elevated, and therefore, this consultation was ordered. The patient was in his usual state of health until approximately November of this year. The patient claims that he has had a cough productive of a whitish sputum since that time. He has had numerous courses of antibiotics and tapering steroids since that time. Over the last several weeks and, he has had progressive shortness of breath. At no time has he experienced exertional chest pain. He has never known of a cardiac event. He has never had a stress test nor cardiac catheterization. The patient demonstrated a sinus tachycardia at the time of his presentation earlier today. A CT scan was significantly abnormal and the patient will proceed with a bronchoscopy tomorrow. Currently, patient is resting comfortably in bed without complaints. Past medical history 1. Hypertension 2. Hypercholesterolemia 3. Diabetes mellitus 4. COPD Social history The patient is an inmate at [employer]. No tobacco or alcohol Family history No early coronary artery disease Review of systems A 10 point review of systems was negative except for that described above. Allergies Allergy/AdvReac Type Severity Reaction Status Date / Time No Known Allergies Allergy Unverified 08/19/19 00:06 Home Medications Home Medications Medication Instructions Recorded Confirmed Type amlodipine 10 mg PO DAILY 07/21/19 08/19/19 History atorvastatin 40 mg PO DAILY 07/21/19 08/19/19 History levalbuterol tartrate [Xopenex HFA] 2 inh INHALATION QID PRN 07/21/19 08/19/19 History lisinopril 20 mg PO DAILY 07/21/19 08/19/19 History metformin 1,000 mg PO BID 07/21/19 08/19/19 History montelukast [Singulair] 10 mg PO PM 07/21/19 08/19/19 History ipratropium-albuterol 3 ml INHALATION QID PRN 08/19/19 08/19/19 History sodium chloride [[place] Nasal] 2 spray INTRANASAL QID PRN 08/19/19 08/19/19 Hist ory Patient History Medical History HTN (hypertension) Hyperlipidemia Type II diabetes mellitus Pneumonia (Acute) Social History Preferred Language: Korean Beliefs That Will Affect Care: None Current Living Situation: Other Feels Safe at Home: Yes Safety Concerns: Feels Safe At This Time Smoking Status: Never smoker Hx Alcohol Use: No Hx Substance Use: No Physical Exam Physical Exam: In general this is a well-developed well-nourished white male in no acute distress. HEENT exam is negative. Neck is supple with full carotid upstrokes. There are no carotid bruits. Jugular venous pressure is flat at 90. There is no thyromegaly. Cardiovascular exam reveals a regular rhythm with a normal S1 and S2. No S3, S4, or murmurs are noted. Lungs are clear without rales, rhonchi, or wheezes. Abdomen is soft and nontender without bruits. Extremities reveal intact radial artery and posterior tibial pulses bilaterally. There is no peripheral edema. Results & Data Vital Signs (Past 12 Hours) Vital Signs Temp Pulse Pulse Resp BP BP Pulse Ox 08/19/19 13:58 78 20 98 08/19/19 11:30 97 08/19/19 11:27 36.8 C 96 H 18 119/80 19 L 08/19/19 07:48 89 08/19/19 07:39 79 20 94 08/19/19 07:33 36.4 C L 96 H 20 124/88 94 08/19/19 04:36 94 H 08/19/19 03:30 36.8 C 97 H 20 123/79 97 Laboratory Results CBC note hemoglobin 13.6, crit 30.8, white count 14.1, platelet count 360,000. Electrolytes note a sodium 133, potassium 4.4, chloride 99, bicarb 26, BUN 13, creatinine 0.91, glucose of 405. Troponin I level presentation was elevated 0.176 with a follow-up value was 0.888. Diagnostic Findings EKG at time presentation noted sinus tachycardia and poor R-wave progression across the anterior precordium. This is unchanged from a tracing done on July 21, 2019. Chest x-ray notes coarse interstitial markings. CT scan of the chest noted severe bronchial wall thickening and maadi bronchovascular ground- glass opacity. There is also evidence of mediastinal lymphadenopathy. PG Care Time/CCT Total # of Minutes Spent Total Time Spent with Patient: Total time spent is greater than 50% in coordination of care (as documented) at patient's floor/unit and/or counseling patient:
[2019-08-19 18:54] LABS: Partial Thromboplastin Ratio 1.4; Partial Thromboplastin Time 38.1 Seconds (21.0-31.0)
[2019-08-19] MEDS ORDERED: HEPARIN IV BOLUS 6,000 UNITS in SYRINGE 0 ML IV ONE (19:45)
[2019-08-19] MEDS: MONTELUKAST SODIUM 10 MG TABLET PO SCH (20:23)
[2019-08-20 02:28] LABS: Hematocrit (blood only) 37.5 % (42-52); Hemoglobin 13.2 g/dL (14.0-18.0); Mean Corpuscular Hemoglobin 30.6 pg (25-34); Mean Corpuscular Hgb Conc 35.2 g/dL (32-36); Mean Corpuscular Volume 86.8 fL (80-100); Mean Platelet Volume 9.2 fL (7.4-10.4); Platelet Count 358 K/uL (130-400); RDW Coefficient of Variation 12.2 % (11.5-14.5); RDW Standard Deviation 39.2 fL (36.4-46.3); Red Blood Count 4.32 M/uL (4.7-6.1); White Blood Count 15.66 K/uL (4.8-10.8)
[2019-08-20 02:48] LABS: Partial Thromboplastin Ratio 4.3
[2019-08-20 02:55] LABS: BUN Creatinine Ratio 19.5 (10-20); Calcium 8.9 mg/dl (8.5-10.1); Creatinine Clr Calc Pharmacy 92.6 ml/min; Est GFR (African American) 110.3; Est GFR (Non-African American) 95.1; Potassium 4.4 mmol/L (3.5-5.1)
[2019-08-20 02:58] LABS: Partial Thromboplastin Time 116.3 Seconds (21.0-31.0)
[2019-08-20] MEDS ORDERED: INSULIN ASPART 100 UNITS/ML 3 ML PEN SC ONE (03:04)
[2019-08-20 03:13] LABS: Beta-Hydroxybutyrate 10.48 mg/dl (0.2-2.81)
[2019-08-20] MEDS: SODIUM CHLORIDE 0.9% 1000ML 1,000 ML IV SCH ×3 (03:58→20:51)
[2019-08-20] MEDS ORDERED: OXYMETAZOLINE 0.05% 30 ML BTL NAE ONE (06:00)
[2019-08-20] MEDS: methylPREDNISolone 40 MG in SYRINGE 0 ML IV SCH ×3 (06:10→17:33)
[2019-08-20] MEDS: cefTRIAXone SODIUM 1,000 MG in DEXTROSE 5% 50 ML IV SCH (06:24)
[2019-08-20] MEDS: ALBUT/IPRATROP 3MG/0.5MG NEB 3 ML VIAL NEB PRN (07:12)
[2019-08-20] MEDS: HEPARIN SODIUM/DEXTROSE 25,000 UNITS/500 ML BAG IV SCH (07:16)
[2019-08-20] MEDS: INSULIN ASPART 100 UNITS/ML 3 ML PEN SC SCH ×4 (08:24→20:54)
[2019-08-20] MEDS ORDERED: INSULIN GLARGINE SOLOSTAR 100 UNITS/ML 3 ML PEN SC SCH (09:00)
[2019-08-20 09:27] LABS: Partial Thromboplastin Ratio 2.2
[2019-08-20 09:39] LABS: Partial Thromboplastin Time 59.2 Seconds (21.0-31.0)
--- NOTE | 2019-08-20 11:40 | Pulmonology Progress Note ---
Date of Service August 20, 2019 Assessment & Plan (1) Abnormal high resolution computed tomography of chest: Seems that the patient has had symptoms for several months with minimal resolution. This seems to be a steroid responsive process. He does have some bronchial wall thickening and reticulonodular changes. He also has reactive lymphadenopathy. The differential here is broad including idiopathic interstitial pneumonia, EGPA, eosinophilic pneumonia, sarcoid and atypical infections. I will perform a bronchoscopy today with BAL and possible biopsies. We will also perform an endobronchial ultrasound with transbronchial needle aspiration of the mediastinal lymph nodes to evaluate for possible sarcoid or malignancy. Although, I think malignancy is much less likely. IgE level, JONNATHAN and ANCA levels are pending. This process may also represent an allergic bronchopulmonary aspergillus like process. He will need outpatient pulmonary function tests and follow-up with pulmonary after discharge. (2) Wheezing: (3) Acute hypoxemic respiratory failure: (4) Mediastinal lymphadenopathy: Subjective Patient still complaining of some wheezing. His dyspnea has improved. His cough is improved. No chest pain. No fevers or chills. Physical Exam Constitutional: WD/WN, vitals as above Eyes: PERRL, conjunctivae normal, anicteric sclerae ENMT: external ear and nose normal, oropharynx normal Neck: trachea midline, no thyromegaly Respiratory: normal respiratory effort Auscultation: + wheezes Cardiovascular: RRR, no murmur, no edema Gastrointestinal (Abdomen): normal bowel sounds, soft, nontender, no hepatosplenomegaly Musculoskeletal: no cyanosis or clubbing, extremities motor strength 5/5 Skin: no rashes, warm and dry Neurologic: PERRL, EOMI, accommodation nl, no face palsy, no dysarthria Psychiatric: A+Ox3, euthymic affect Lymphatic: no cervical or axillary lymphadenopathy Results & Data Vital Signs (Past 12 Hours) Vital Signs Temp Pulse Pulse Resp BP BP Pulse Ox 08/20/19 08:00 85 08/20/19 07:43 97.7 F 82 16 110/64 94 08/20/19 07:13 72 18 94 08/20/19 04:30 98.4 F 79 20 114/72 97 08/20/19 01:49 82 pertinent labs and chest imaging reviewed. PG Care Time/CCT Total # of Minutes Spent Total Time Spent with Patient: Total time spent is greater than 50% in coordination of care (as documented) at patient's floor/unit and/or counseling patient:
[2019-08-20 11:55] LABS: Estimated Average Glucose 349 mg/dl; Hemoglobin A1C 13.8 % (4.5-5.6)
[2019-08-20] MEDS: DOXYCYCLINE HYCLATE 100 MG in DEXTROSE 5% 100 ML IV SCH (12:01)
[2019-08-20 12:11] LABS: Partial Thromboplastin Ratio 0.9
[2019-08-20] MEDS: ASPIRIN 81 MG ECTAB PO SCH (12:38)
[2019-08-20] MEDS ORDERED: PHARMACY GLYCEMIC MGMT CONSULT PRN (12:42)
[2019-08-20] MEDS ORDERED: INSULIN HUMAN REGULAR PER UNIT 7 UNITS in SYRINGE 6.93 ML IV ONE (13:00)
[2019-08-20] MEDS ORDERED: INSULIN GLARGINE SOLOSTAR 100 UNITS/ML 3 ML PEN SC ONE (13:00)
[2019-08-20] MEDS ORDERED: LIDOCAINE HCL 2% (LOCAL) INJ 50 ML VIAL INSTIL ONE (14:12)
[2019-08-20] MEDS ORDERED: LIDOCAINE 4% INH SOLN 4 ML BTL NEB ONE (14:16)
[2019-08-20] MEDS ORDERED: fentaNYL citrate 100 MCG/2 ML VIAL IV STA (14:17)
[2019-08-20] MEDS ORDERED: MIDAZOLAM HCL 1 MG/ML 2ML VIAL IV STA (14:17)
--- NOTE | 2019-08-20 14:24 | Procedure Note ---
Procedure Note Date of Service August 20, 2019 Sedation began at 1312 and ended at 1410. A total of 6 mg of Versed and 225 mcg of fentanyl were used. PREOPERATIVE DIAGNOSIS: Groundglass opacities and mediastinal lymphadenopathy POSTOPERATIVE DIAGNOSIS: Groundglass opacities and mediastinal adenopathy PROCEDURE PERFORMED: Flexible fiberoptic bronchoscopy with bronchial alveolar lavage from the right upper lobe and right middle lobe. Endobronchial ultrasound transbronchial needle aspiration of station 7 and 11 L. Rapid on-site pathology is negative for malignancy COMPLICATIONS: None. INDICATION: Examined adenopathy and perform BAL to rule out infectious and eosinophilic pneumonia PROCEDURE: After obtaining an informed consent, the patient was brought to the Bronchoscopy Suite. The patient had appropriate oxygen, blood pressure, heart rate, and respiratory rate monitoring applied and monitored continuously throughout the procedure. Supplemental oxygen via nasal cannula as per nursing records was applied to the nasopharynx with adequate saturations achieved. Topical anesthesia with nebulized 1% lidocaine was achieved. Subsequent to this, the patient was premedicated with 6 mg of midazolam and 225 Mcg of fentanyl. The oropharynx and larynx were well visualized and showed no evidence of erythema. There was normal vocal cord motion without masses or lesions. Additional topical anesthesia with 1% lidocaine was applied to the trachea and latasha. The trachea appeared normal.The bronchoscope was then advanced through the latasha, which was sharp. The scope was then advanced into the right main stem and each segment, subsegement in the right upper lobe, right middle lobe and right lower lobe was visualized. There was scant amounts of thin secretions noted. There were no other findings including evidence of mass, anatomic distortions, or hemorrhage. The bronchoscope was subsequently withdrawn and advanced into the left mainstem. Again, each segment and subsegment was well visualized. No specific masses or other lesions were identified throughout the tracheobronchial tree on the left. There was scant amounts of thin secretions noted. The bronchoscope was then wedged in the right upper lobe and bronchoalveolar lavage samples were obtained. 120 ml of saline was instilled and 20 ml of fluid was aspirated back.The bronchoscope was withdrawn and the area was suctioned clear. The bronchoscope was then re-advanced into the right middle lobe and 60 mL of fluid was instilled and 15 mL of return was seen. Minimal hemorrhage was identified and suctioned clear without difficulty. The bronchoscope was then withdrawn to the mainstem. The area was suctioned clear. The bronchoscope was then withdrawn. We then inserted the EBUS scope and looked at station 7, station 4R, station for 4L, station 10 L, 11 L, station 10 R and 11 R. We performed 7 FNA passes of station 7. Only 2 samples were deemed adequate by rapid on-site pathology. We also performed 1 pass of station 11 L. The scope was then withdrawn to the latasha and no significant bleeding was seen. The patient tolerated the procedure well without evidence of desaturation or complications. Bronchoalveolar lavage samples were sent for cell count, Gram stain and bacterial culture, AFB culture and smear, fungal culture and smear, and cyto logy. EBUS FNA was sent for pathology and flow cytometry. Recommendations: Follow cultures, cell count, cytology and biopsy results. Resume heparin drip in 6 hours if no evidence of hemoptysis. Coding CPT Codes Sedation/Anesthesia - Sedation/Anesthesia: Mod Sedation by the same physician;Init15 Min Child Age 5 & Up ([id number]) Pulmonary/Thoracic - Pulmonary and Thoracic: Dx bronchoscopy/BAL ([id number]) Pulmonary/Thoracic - Pulmonary and Thoracic: Bronchoscopy, w/EBUS 1 or 2 mediastinal ([id number])
--- NOTE | 2019-08-20 14:25 | Post Anesthesia Assessment ---
Date of Service August 20, 2019 Post Sedation Assessment Vital Signs Temp Pulse Pulse Resp BP BP Pulse Ox 08/20/19 14:10 83 16 100/62 95 08/20/19 14:05 86 20 111/71 97 08/20/19 14:00 99 H 20 122/75 98 08/20/19 13:55 99 H 22 119/77 99 08/20/19 13:50 93 H 16 113/70 100 08/20/19 13:45 80 14 97/63 L 95 08/20/19 13:40 81 16 105/66 95 08/20/19 13:35 81 14 106/65 93 08/20/19 13:30 81 14 111/67 93 08/20/19 13:25 88 20 107/66 94 08/20/19 13:20 88 20 121/72 94 08/20/19 13:15 78 20 117/77 99 08/20/19 13:10 78 20 116/69 99 08/20/19 13:05 78 18 107/67 99 08/20/19 11:50 99.5 F 76 20 121/69 96 08/20/19 08:00 85 08/20/19 07:43 97.7 F 82 16 110/64 94 08/20/19 07:13 72 18 94 08/20/19 04:30 98.4 F 79 20 114/72 97 08/20/19 01:49 82 08/19/19 22:07 80 16 97 08/19/19 19:28 99.0 F 87 18 102/70 96 08/19/19 16:00 88 08/19/19 15:49 98.6 F 85 19 114/76 96 Recovery Score Activity: Moves 4 extremities Respiration: Deep Breath/Cough Circulation: +/-20% PreAnes Value Consciousness: Arouseable (by name) Oxygen Saturation: O2 needed for >90% Post Anesthesia Score: 8 Discharge Sedation Level of Care: Fast Track Phase II Post Sedation Plan On clinical assessment, the patient appears to have tolerated the sedation without complications. Patient is recovering as anticipated. Patient will continue to be monitored by nursing and may be discharged when sedation discharge criteria are met per below protocol. Upon Completions of procedure and additional 15 minutes continue every 5 minute vital signs and the P.A.R. score; then discharge to a Phase I or Fast Track to Phase II per the following guidelines: * Discharge Patient to appropriate Phase II area if PAR is 8 or greater or return to pre- procedure baseline. The post - procedure orders will be as directed. * If PAR score is less than 8 or not return to pre-procedure baseline then patient will follow Phase I monitoring till PAR is reached for Phase II. The Phase I may be done in procedure room or may call to secure a Phase I area. * If naloxone or flumazenil are used for reversal, hold in Phase I for continued monitoring from when last reversal dose was given for a minimum of 60 minutes or longer pending the nurse and/or physician discretion of patient condition before discharge to Phase II. Please call the Sedation Physician to re-evaluate and complete post-note for discharge to Phase II area. Do NOT discharge from procedure sedation or Phase 1 until post- sedation evaluation note is complete by procedure /sedation MD Sedation Discharge Instructions to be given to the patient at discharge to home.
--- NOTE | 2019-08-20 15:38 | Pharmacy Report ---
Pharmacy Glycemic Short Note 2 - Date of Service August 20, 2019 - Glycemic Short BSG Results (Last 24 hours): 08/19/19 08/19/19 08/20/19 16:40 20:20 01:32 Glucose POC Glucose 263 H 345 H* 352 H* 08/20/19 08/20/19 08/20/19 02:11 06:08 07:17 Glucose 368 H* POC Glucose 285 H 297 H 08/20/19 08/20/19 11:29 14:40 Glucose POC Glucose 290 H 199 H OUTPATIENT ANTIDIABETIC REGIMEN: * metformin 1000 mg PO BID * A1c = 13.8% (08/20/19) ASSESSMENT: * 58 yr old male with hyperglycemia due to baseline uncontrolled diabetes and high dose IV steroids. * Fasting BSG of 297 mg/dL is above goal. Will change Lantus to dose per scale (weight based dosing/stress 1-3) * Will tighten Novolog carb coverage and add overnight checks. * Outpatient diabetes regimen will require adjustment due to A1c of 13.8%. PLAN FOR INPATIENT GLYCEMIC CONTROL: * Hold outpatient oral diabetes medications * Basal insulin - increase * Extra 10 units of Lantus this afternoon, then dose per scale: * Lantus SQ BID: - 7 units for BSG < 140 - 12 units for BSG 140-180 - 18 units for BSG > 180 * Bolus insulin - tighten carb ratio * NovoLog per scale ACHS or Q6hrs while NPO * Goal Range: Low 100 mg/dL - High 140 mg/dL * Correction Factor: 20 mg/dL/unit * Nutritional / Prandial insulin per carb ratio of 1 unit per 7 grams CHO consumed Pending order: if BSG remains > 250 mg/dL x 2 (at 1630 and 21), start IV insulin infusion per insulin infusion calculator * Goal range: 110-180 mg/dL * High stress
[2019-08-20 16:00] LABS: Eosinophil Body Fluid Man 9 %; Fluid Mono/Macrophage 57 %; Lymphocyte Body Fluid Man 29 %; Neutrophil Body Fluid Man 4 %
[2019-08-20] MEDS: AMLODIPINE BESYLATE 5 MG TAB PO SCH (17:16)
[2019-08-20] MEDS: LISINOPRIL 20 MG TAB PO SCH (17:16)
[2019-08-20] MEDS ORDERED: Nursing to Pharmacy Communication ONE (17:21)
[2019-08-20] MEDS: PANTOprazole 40 MG TAB PO SCH (17:33)
[2019-08-20] MEDS: ATORVASTATIN 40 MG TAB PO SCH (17:33)
[2019-08-20] MEDS: MONTELUKAST SODIUM 10 MG TABLET PO SCH (20:51)
[2019-08-20] MEDS: INSULIN GLARGINE SOLOSTAR 100 UNITS/ML 3 ML PEN SC SCH (20:52)
--- NOTE | 2019-08-20 22:02 | Hospitalist Progress Note ---
Date of Service August 20, 2019 Assessment & Plan (1) Atypical pneumonia: IV Doxycycline I added Rocephin for further coverage Continue IV Solumedrol as it does appear that steroids previously gave benefit for patients symptoms. Consulted pulmonary, patient giselle be getting a bronch today. Patient has significant wheezing on exam today. check Legionella antigen urine check Mycoplasma IgG and IgM Pulmonology consult CTA chest ordered. (2) Abscess of left axilla: I&D performed in the ED IV Doxycycline IV Rocephin wound care gave discharge instructions. (3) Hypomagnesemia: resolved. (4) Elevated troponin: He did not have chest pain therefore suspect this is related to demand ischemia. (5) Type II diabetes mellitus: Hold Metformin as he received IV dye Sliding scale insulin coverage Lantus 10 units ordered for now. (6) HTN (hypertension): Continue amlodipine and lisinopril (7) Hyperlipidemia: continue atorvastatin. Subjective Patient reports feeling well.He still feels SOB at rest, but it is better than yesterday. Review of Systems Review of Systems: All systems reviewed & are unremarkable except as noted in HPI & below Physical Exam Physical Exam: General- adult male, NAD Head- atraumatic Eyes- PERRL, EOMI, anicteric ENT- oropharynx clear Neck- supple, no JVD, no adenopathy, no thyromegaly; Lungs- bilateral wheez Heart- regular rhythm; no murmur, no gallop, no rub appreciated Abdomen- normal bowel sounds, soft, nontender. Extremities- no pretibial edema, no calf tenderness; peripheral pulses intact Neuro- alert, oriented x 3; PERRL, EOMI; chief orthoptist II-XII grossly intact, NON-focal. Skin- warm & dry. Left axilla small abscess s/p I&D in the ED. Results & Data Vital Signs (Past 12 Hours) Vital Signs Temp Pulse Pulse Resp BP BP BP 08/20/19 19:48 36.9 C 77 21 107/69 08/20/19 16:46 72 19 08/20/19 16:45 73 20 101/61 08/20/19 16:31 72 22 08/20/19 16:30 75 22 99/59 L 08/20/19 16:15 72 21 104/59 L 08/20/19 16:01 75 20 11/07/19 16:00 74 23 114/71 11/07/19 15:46 79 21 08/20/19 15:45 80 28 H 119/78 08/20/19 15:35 79 15 08/20/19 15:34 79 17 107/73 08/20/19 15:30 76 22 08/20/19 15:15 78 21 106/68 08/20/19 15:02 87 08/20/19 15:00 79 21 08/20/19 14:45 85 08/20/19 14:40 36.8 C 81 20 97/63 L 08/20/19 14:30 85 08/20/19 14:25 78 16 105/67 08/20/19 14:20 79 14 104/76 08/20/19 14:15 83 16 106/66 08/20/19 14:10 83 16 100/62 08/20/19 14:05 86 20 111/71 08/20/19 14:00 99 H 20 122/75 08/20/19 13:55 99 H 22 119/77 08/20/19 13:50 93 H 16 113/70 08/20/19 13:45 80 14 97/63 L 08/20/19 13:40 81 16 105/66 08/20/19 13:35 81 14 106/65 08/20/19 13:30 81 14 111/67 08/20/19 13:25 88 20 107/66 08/20/19 13:20 88 20 121/72 08/20/19 13:15 78 20 117/77 08/20/19 13:10 78 20 116/69 08/20/19 13:05 78 18 107/67 08/20/19 11:50 37.5 C 76 20 121/69 Pulse Ox 08/20/19 19:48 97 08/20/19 16:46 95 08/20/19 16:45 95 08/20/19 16:31 94 08/20/19 16:30 93 08/20/19 16:15 94 08/20/19 16:01 93 08/20/19 16:00 93 08/20/19 15:46 95 08/20/19 15:45 94 08/20/19 15:35 94 08/20/19 15:34 92 08/20/19 15:30 94 08/20/19 15:15 92 08/20/19 15:02 08/20/19 15:00 92 08/20/19 14:45 08/20/19 14:40 91 08/20/19 14:30 08/20/19 14:25 93 08/20/19 14:20 93 08/20/19 14:15 93 08/20/19 14:10 95 08/20/19 14:05 97 08/20/19 14:00 98 08/20/19 13:55 99 08/20/19 13:50 100 08/20/19 13:45 95 08/20/19 13:40 95 08/20/19 13:35 93 08/20/19 13:30 93 08/20/19 13:25 94 08/20/19 13:20 94 08/20/19 13:15 99 08/20/19 13:10 99 08/20/19 13:05 99 08/20/19 11:50 96 PG Care Time/CCT Total # of Minutes Spent Total Time Spent with Patient: Total time spent is greater than 50% in coordination of care (as documented) at patient's floor/unit and/or counseling patient:
[2019-08-21] MEDS: INSULIN ASPART 100 UNITS/ML 3 ML PEN SC SCH ×6 (00:15→20:44)
[2019-08-21] MEDS: methylPREDNISolone 40 MG in SYRINGE 0 ML IV SCH ×4 (00:15→17:15)
[2019-08-21] MEDS: DOXYCYCLINE HYCLATE 100 MG in DEXTROSE 5% 100 ML IV SCH ×2 (00:17→13:14)
[2019-08-21] MEDS: cefTRIAXone SODIUM 1,000 MG in DEXTROSE 5% 50 ML IV SCH (05:45)
[2019-08-21] MEDS: ALBUT/IPRATROP 3MG/0.5MG NEB 3 ML VIAL NEB PRN ×3 (05:51→21:37)
[2019-08-21 06:50] LABS: Hematocrit (blood only) 39.9 % (42-52); Hemoglobin 13.9 g/dL (14.0-18.0); Immature Granulocytes # (auto) 0.06 K/uL (0.00-0.02); Immature Granulocytes % (auto) 0.3 %; Lymphocytes # (auto) 1.68 K/uL (1.2-3.4); Lymphocytes % (auto) 9.7 %; Mean Corpuscular Hemoglobin 30.2 pg (25-34); Mean Corpuscular Hgb Conc 34.8 g/dL (32-36); Mean Corpuscular Volume 86.7 fL (80-100); Mean Platelet Volume 9.4 fL (7.4-10.4); Monocytes # (auto) 0.65 K/uL (0.11-0.59); Monocytes % (auto) 3.7 %; Neutrophils # (auto) 14.98 K/uL (1.4-6.5); Neutrophils % (auto) 86.3 %; Platelet Count 388 K/uL (130-400); RDW Coefficient of Variation 12.6 % (11.5-14.5); White Blood Count 17.37 K/uL (4.8-10.8)
[2019-08-21] MEDS: INSULIN GLARGINE SOLOSTAR 100 UNITS/ML 3 ML PEN SC SCH ×2 (07:56→20:42)
[2019-08-21] MEDS ORDERED: VANCOMYCIN CONSULT ACTIVE PRN (08:06)
[2019-08-21] MEDS ORDERED: VANCOMYCIN HCL 1,750 MG in SODIUM CHLORIDE 0.9% 500 ML IV ONE (08:30)
--- NOTE | 2019-08-21 08:34 | Pharmacy Report ---
Pharmacy Abx Initial Consult - Date of Service August 21, 2019 - Pharmacy Dosing Scope Date of Consult: 08/21/19 Consultation requested by: Dr. Carrillo Pharmacy is consulted to initiate Vancomycin IV dosing therapy, order appropriate labs and adjust drug dose/frequency. Of note, patient is also receiving CTX + Doxy IV. - Subjective The patient is a 58 year old M admitted on 08/19/19 02:38. - Objective Height: 5 ft 9 in Weight: 74.2 kg Vital Signs (Past 12hrs): Vital Signs Temp Pulse Pulse Resp BP Pulse Ox 08/21/19 06:59 36.5 C 92 H 19 141/79 H 93 08/21/19 05:54 73 18 95 08/21/19 03:52 36.6 C 74 18 122/72 92 08/20/19 23:50 36.9 C 73 18 125/76 97 Lab Results (24hrs): Laboratory Tests (24 Hours) 08/21/19 06:28 WBC 17.37 H Neut # (Auto) 14.98 H Micro Results: 08/19/19 06:37 MRSA Axilla,Left 08/20/19 13:25 Fungal Smear - Final Bronch Washings Combined Fungal Culture - Pending 08/20/19 13:25 Gram Stain - Final Bronch Washings Combined Bronchoalveolar Lavage Culture - Pending 08/20/19 13:25 Acid Fast Bacilli Smear - Pending Bronch Washings Combined Acid Fast Bacilli Culture - Pending 08/19/19 13:51 Gram Stain - Final Sputum, Expectorated - Risk Factors for Resistance * Resident in an extended-care facility * History of infection with a multidrug-resistant organism: MRSA - Assessment & Plan Assessment 58 year old M receiving ceftriaxone + doxycycline IV since 08/19/19. Abx therapy broadened to include vancomycin today. Left Axilla abscess c/s are growing MRSA, sensitive to vanco with PRASHANTH = 2. Plan Vancomycin IV * Estimated PK Parameters: Vd 0.6 L/kg, Evan 0.071 hr-1, t1/2 9.8 hr * Loading dose: 1,750 mg (23.6 mg/kg) * Maintenance dose: 1,250 mg IV (16.8 mg/kg) every 12 hours * Goal trough level for SST/abscess/PRASHANTH of 2: 15 to 20 mcg/mL * Trough level ordered for 11/10/19 @ 0800 No changes needed to ceftriaxone or doxy dosing. Piperacillin/tazobactam Pharmacy will continue to follow and will adjust dose/frequency as necessary. Thank you.
[2019-08-21] MEDS: LISINOPRIL 20 MG TAB PO SCH (08:51)
[2019-08-21] MEDS: ASPIRIN 81 MG ECTAB PO SCH (08:52)
[2019-08-21] MEDS: SODIUM CHLORIDE 0.9% 1000ML 1,000 ML IV SCH (08:52)
[2019-08-21] MEDS: AMLODIPINE BESYLATE 5 MG TAB PO SCH (08:52)
--- NOTE | 2019-08-21 09:24 | Pharmacy Report ---
Pharmacy Glycemic Short Note 2 - Date of Service August 21, 2019 - Glycemic Short BSG Results (Last 24 hours): 08/20/19 08/20/19 08/20/19 11:29 14:40 17:09 POC Glucose 290 H 199 H 183 H 08/20/19 08/20/19 08/21/19 20:29 23:56 03:48 POC Glucose 265 H 212 H 189 H 08/21/19 07:37 POC Glucose 197 H OUTPATIENT ANTIDIABETIC REGIMEN: * metformin 1000 mg PO BID * A1c = 13.8% (08/20/19) ASSESSMENT: * 58 yr old male with hyperglycemia due to baseline uncontrolled diabetes and high dose IV steroids. * Patient has received 38 units of basal insulin + 46 units of prandial/correctional insulin for a total of 84 units/day * BSGs still elevated but insulin not yet at steady state. Current dosing is appropriate for high dose steroids (~1 unit/kg/day). Will hold off on changes today and re-assess tomorrow. * Insulin regimen will need decreased with each step down in steroid dosing. * Outpatient diabetes regimen will require adjustment due to A1c of 13.8%. PLAN FOR INPATIENT GLYCEMIC CONTROL: * Hold outpatient oral diabetes medications * Basal insulin - no change * Lantus SQ BID: - 12 units for BSG < 140 - 18 units for BSG 140 or above * Bolus insulin - no chance * NovoLog per scale ACHS or Q6hrs while NPO- continue additional checks/coverage at 0000 & 0400 * Goal Range: Low 100 mg/dL - High 140 mg/dL * Correction Factor: 20 mg/dL/unit * Nutritional / Prandial insulin per carb ratio of 1 unit per 7 grams CHO consumed * Decrease insulin regimen with each step down in steroid dosing.
[2019-08-21] MEDS: ATORVASTATIN 40 MG TAB PO SCH (10:17)
[2019-08-21] MEDS: PANTOprazole 40 MG TAB PO SCH (10:17)
--- NOTE | 2019-08-21 12:51 | Pulmonology Progress Note ---
Date of Service August 21, 2019 Assessment & Plan (1) Abnormal high resolution computed tomography of chest: Bronch with bal and EBUS-TBNA performed yesterday. Patient has 9% eosinophils on BAL fluid while on steroids. Also 29% lymphocytes. He does have a history of mold exposure from Nov to March in skilled nursing at [place] per his account. Question of possible hypersensitivity pneumonitis vs chronic eosinophilic pna. Regardless, treatment is similar. Avoid the precipitating organic cause and give a prolonged course of steroids. Possibility of sarcoid remains. EBUS-TBNA bx specimen results pending. IgE, serum allergy testing, HP panel, JONNATHAN and ANCA pending as well. Needs pulmonary follow up in 2 weeks with full PFTs. Continue predisone 40 mg for two weeks and then we will decide if we can taper down to 30 mg during the appt visit. Would also start him on Symbicort 80/4.5 BID. We can follow up lab results at that time as well in the clinic. Lastly, he is growing group c strep in his BAL fluid. Recommend 7 days of abx with cephalosporin. This was all communicated to the hospitalist team, FRANCESCO Simpson for discharge from a pulmonary perspective. Thanks for the consult. Please call with questions. (2) Wheezing: (3) Acute hypoxemic respiratory failure: (4) Mediastinal lymphadenopathy: (5) Eosinophilic pneumonia: Subjective Patient with no wheezing today. Much less cough. No fevers or chills. No night sweats. One episode of scant hemoptysis that resolved spontaneously. Physical Exam Constitutional: WD/WN, vitals as above Eyes: PERRL, conjunctivae normal, anicteric sclerae ENMT: external ear and nose normal, oropharynx normal Neck: trachea midline, no thyromegaly Respiratory: normal respiratory effort Auscultation: + wheezes Cardiovascular: RRR, no murmur, no edema Gastrointestinal (Abdomen): normal bowel sounds, soft, nontender, no hepatosplenomegaly Musculoskeletal: no cyanosis or clubbing, extremities motor strength 5/5 Skin: no rashes, warm and dry Neurologic: PERRL, EOMI, accommodation nl, no face palsy, no dysarthria Psychiatric: A+Ox3, euthymic affect Lymphatic: no cervical or axillary lymphadenopathy Results & Data Vital Signs (Past 12 Hours) Vital Signs Temp Pulse Pulse Pulse Resp BP Pulse Ox 08/21/19 11:14 98.8 F 73 18 116/63 95 08/21/19 08:30 95 H 08/21/19 06:59 97.7 F 92 H 19 141/79 H 93 08/21/19 05:54 73 18 95 08/21/19 03:52 97.9 F 74 18 122/72 92 PG Care Time/CCT Total # of Minutes Spent Total Time Spent with Patient: Total time spent is greater than 50% in coordination of care (as documented) at patient's floor/unit and/or counseling patient:
--- NOTE | 2019-08-21 12:52 | Hospitalist Progress Note ---
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 An within that time period Sputum from bronch with Group C strep * Patient has been on Ceftriaxone. Will discontinue and start on Omnicef 300 mg PO q12h X 5 days starting tomorrow morning Outpatient allergy testing Avoid molds and other potential irritants (2) Mediastinal lymphadenopathy: POD #1 EBUS Bronc washings with group C beta strep * Patient has been on ceftriaxone * Discontinue ceftriaxone and start patient on Omnicef 300 mg p.o. twice daily starting tomorrow for 5 days Pathology pending Outpatient follow-up with Dr. An in 2 to 3 weeks No evidence of mediastinitis Continue to follow outpatient (3) Abscess of left axilla: MRSA Patient was on doxycycline as well as vancomycin Will discontinue the vancomycin Continue doxycycline for total 7 days Patient reports previous MRSA infection Afebrile No bacteremia Follow outpatient (4) Type II diabetes mellitus: Poorly controlled * Hemoglobin A1c 13.8 Patient treated outpatient with metformin 1 g p.o. twice daily * Does not appear to be receiving outpatient insulin Continue diabetic diet Continue Lantus with sliding scale insulin while inpatient Discharge home on usual meds Would recommend changing to insulin as an outpatient in the [facility] per halfway policy (5) Elevated troponin: No associated EKG changes Echocardiogram with left ventricular ejection fraction preserved at 50 to 55% No significant wall motion abnormalities No significant valvular pathology Borderline concentric left ventricular hypertrophy Continue lisinopril and amlodipine as an outpatient (6) HTN (hypertension): Echocardiogram as above Continue amlodipine and lisinopril on discharge Generally controlled (7) Hyperlipidemia: Continue atorvastatin (8) DVT prophylaxis: Patient initially started on enoxaparin and then switched to heparin drip due to spike in troponin No indication for ACS or heparin drip We will change patient to heparin subcu every 12 hours Patient does have a minimal amount of blood mixed with sputum postop EBUS If this worsens hold all chemical prophylaxis Please refer to Dr. Carrillo's addendum for further recommendations Subjective Attending: Dr. Carrillo Patient seen and examined at bedside. Continues to have cough and sputum. Small amount of hemoptysis. No chest pain or tightness. No need for supplemental oxygen. Bronchoscopy yesterday with Group C strep and eosinophilia. Otherwise WNL. Afeberile. No nausea or vomiting. No leg pain or calf pain. No headache. No change in vision. Eating well. Review of Systems Review of Systems: All systems reviewed & are unremarkable except as noted in HPI & below Physical Exam Constitutional: No acute distress. Pleasant Eyes: PERRL, conjunctivae normal, anicteric sclerae Neck: No appreciation of stridor or carotid bruits Respiratory: normal respiratory effort; no respiratory distress Auscultation: lungs clear to auscultation bilaterally and + diminished lung sounds Cardiovascular: Rate/Rhythm: regular rate and regular rhythm Musculoskeletal: Head/Neck/Chest: + abnormal palpation of chest wall Neurologic: &OX3. Results & Data Vital Signs (Past 12 Hours) Vital Signs Temp Pulse Pulse Pulse Resp BP Pulse Ox 08/21/19 11:14 37.1 C 73 18 116/63 95 08/21/19 08:30 95 H 08/21/19 06:59 36.5 C 92 H 19 141/79 H 93 08/21/19 05:54 73 18 95 08/21/19 03:52 36.6 C 74 18 122/72 92 Laboratory Results 08/21/19 06:28 08/20/19 02:[address] angio chest PE protocol CT DOSE: 366.82 mGy.cm HISTORY: Dyspnea SOB, elelvated D-dimer TECHNIQUE: Multiaxial CT images of the chest were performed following the intravenous administration of contrast to evaluate the pulmonary arteries. Maximal intensity projection images were also obtained. A dose lowering technique was utilized adhering to the principles of ALARA. COMPARISON STUDY: 07/21/2019 FINDINGS: Normal thoracic aorta. Pulmonary vasculature enhances appropriately. No significant filling defects. Mild mediastinal and hilar adenopathy unchanged. Mild to moderate peribronchial thickening throughout the mid and lower lung regions bilaterally. IMPRESSION: 1. No evidence for pulmonary embolus. 2. Groundglass and reticular nodular/interstitial change throughout the mid to lower lung regions bilaterally. 3. This may relate to an atypical inflammatory process, bronchitis, 4. No evidence for consolidative infiltrate. 5. Unchanged reactive mediastinal and hilar jesus change. Electronically signed by: Nam Hernandez M.D. 08/19/2019 6:12 AM PG Care Time/CCT Total # of Minutes Spent Total Time Spent with Patient: Total time spent is greater than 50% in coordination of care (as documented) at patient's floor/unit and/or counseling patient: 35
[2019-08-21] MEDS ORDERED: VANCOMYCIN HCL 1,250 MG in SODIUM CHLORIDE 0.9% 250 ML IV SCH (20:00)
[2019-08-21] MEDS: MONTELUKAST SODIUM 10 MG TABLET PO SCH (20:45)
[2019-08-22] MEDS: DOXYCYCLINE HYCLATE 100 MG in DEXTROSE 5% 100 ML IV SCH ×2 (00:04→12:10)
[2019-08-22] MEDS: INSULIN ASPART 100 UNITS/ML 3 ML PEN SC SCH ×5 (00:05→17:17)
[2019-08-22] MEDS: methylPREDNISolone 40 MG in SYRINGE 0 ML IV SCH ×3 (00:05→12:10)
[2019-08-22] MEDS: ALBUT/IPRATROP 3MG/0.5MG NEB 3 ML VIAL NEB PRN ×2 (04:30→14:20)
[2019-08-22 06:30] LABS: Creatinine Clr Calc Pharmacy 108.8 ml/min; Est GFR (African American) 117.8; Est GFR (Non-African American) 101.7
[2019-08-22] MEDS: INSULIN GLARGINE SOLOSTAR 100 UNITS/ML 3 ML PEN SC SCH (08:10)
[2019-08-22] MEDS: AMLODIPINE BESYLATE 5 MG TAB PO SCH (08:13)
[2019-08-22] MEDS: LISINOPRIL 20 MG TAB PO SCH (08:13)
[2019-08-22] MEDS: ASPIRIN 81 MG ECTAB PO SCH (08:14)
[2019-08-22] MEDS: PANTOprazole 40 MG TAB PO SCH (08:14)
[2019-08-22] MEDS: CEFDINIR 300 MG CAP PO SCH ×2 (08:14→20:44)
[2019-08-22] MEDS: ATORVASTATIN 40 MG TAB PO SCH (08:14)
--- NOTE | 2019-08-22 09:21 | Pharmacy Report ---
Glycemic Control Progress Note - Date of Service August 22, 2019 - Scope Glycemic Pharmacist consulted for glycemic control to write orders per [facility] inpatient glycemic control protocol. - Objective Accuchecks BSG(last 24 hours):: 08/21/19 08/21/19 08/21/19 11:16 16:07 20:27 POC Glucose 261 H 257 H 260 H 08/21/19 08/22/19 08/22/19 23:57 03:54 07:43 POC Glucose 252 H 197 H 240 H HbA1c:: Hemoglobin A1c 13.8 % (4.5-5.6) H 08/20/19 02:11 - Recent Pertinent Medications The patient is currently receiving: * Basal insulin: Lantus 12-24 units every 12 hours * Correctional Insulin: Novolog Correction per scale ACHS Goal Range: Low 100 mg/dL - High 140 mg/dL Correction Factor: 15 mg/dL/unit * Prandial insulin: Per carb ratio of 1 unit per 6 grams CHO consumed - Outpatient Anti-Diabetic Meds metformin 1 gm po BID - Assessment & Plan ASSESSMENT: * See progress note from 08/20/19 for more background info, in short: * Pt receiving SQ basal bolus insulin regimen for hyperglycemia secondary to baseline DM (outpatient regimen on hold),stress/infection (currently on cefdinir and doxycycline), and Solu-Medrol 40 mg IV q6 hours (plan for 2 weeks of prednisone 40 mg daily after this) * Patient is currently receiving an average of 110 units of insulin per day * 42 units of basal insulin * 68 units of prandial/correctional insulin * BSGs ranging 197 - 261 mg/dl over the past 24hrs * Changes needed to insulin regimen: * AM Fasting BSG = 240 mg/dl. This is above goal range for patient based on inpatient targets and co-morbidities. The patient received an additional 9 units of insulin overnight. Plan for additional 6 units of Lantus today. Do not want to give much more than this as 24 units SQ BID is already 6 units above weight-based stress of 3 (18 units SQ BID). * Post-prandial BSGs are elevated. Regimen is correctly split with 60% of insulin coverage coming from Novolog. Tighten both parameters currently. May require further tightening at lunchtime depending on blood sugar. * Total daily dose = >100 units while on steroids. Will require dose reduction when IV steroids d/c'ed. PLAN FOR INPATIENT GLYCEMIC CONTROL: * Continuing Lantus 12-24 units SQ BID * TIGHTENING correction factor to 12 mg/dl/unit * TIGHTENING carb ratio to 1 unit per 5 grams CHO consumed * Continuing goal range to Low 100 mg/dL - High 140 mg/dL RECOMMENDATIONS FOR DISCHARGE: * please see note from 08/21/19 Thank you.
[2019-08-23] MEDS ORDERED: VANCOMYCIN TROUGH ONE (07:30)
[2019-08-23] MEDS ORDERED: DOXYCYCLINE HYCLATE 100 MG CAP PO SCH ×2 (09:00)
[2019-08-23] MEDS ORDERED: CEFDINIR 300 MG CAP PO SCH (09:00)
[2019-08-23 18:19] LABS: HSV Type 1 DNA Not Detected (Not Detected); HSV Type 2 DNA Not Detected (Not Detected)
[2019-08-23 22:31] LABS: Mycoplasma pneumoniae Ab, IgG 1.21 (<=0.90)
[2019-08-23 23:32] LABS: CMV DNA Qnt Real Time PCR <200 IU/mL (<200); CMV DNA Quant PCR <2.30 log IU/mL (<2.30)
[2019-08-24 12:31] LABS: ANCA Screen Negative (Negative); Anti Nuclear Antibody Screen NEGATIVE (NEGATIVE)
[2019-08-26 20:24] LABS: Alternaria Class 0; Alternaria IgE <0.10 KU/L; Ash (White) Class 0; Ash (White) IgE <0.10 KU/L; Asperg Fumig Class 0; Asperg Fumig IgE <0.10 KU/L; Aspergillus fumigatus NEGATIVE (NEGATIVE); Bermuda Grass Class 0; Bermuda Grass IgE <0.10 KU/L; Birch Class 0; Birch IgE <0.10 KU/L; Cat Dander Class 1; Cat Dander IgE 0.51 KU/L; Cladosporium IgE <0.10 KU/L; Cladosporium her Class 0; Cockroach Allergen Class 0; Cockroach IgE Ab <0.10 KU/L; Cottonwood Class 0; Cottonwood IgE <0.10 KU/L; D. farinae Class 0; D. farinae IgE <0.10 KU/L; D. pteronyssinus Class 0; D. pteronyssinus IgE <0.10 KU/L; Dog Dander Class 0; Dog Dander IgE <0.10 KU/L; Elm Class 0; Elm IgE <0.10 KU/L; Immunoglobulin IgE 384 KU/L (<115); Maple (Box Elder) IgE <0.10 KU/L; Maple Class 0; Mountain Cedar Class 0; Mountain Cedar IgE <0.10 KU/L; Mouse Urine Protein Class 0; Mouse Urine Protein IgE <0.10 KU/L; Mugwort (W6) IgE <0.10 KU/L; Mugwort Class 0; Oak-White Class 0; Oak-White IgE <0.10 KU/L; Penic Notatum Class 0; Penic Notatum IgE <0.10 KU/L; Rough Pigweed Class 0; Rough Pigweed IgE <0.10 KU/L; Sheep Sorrel Class 0; Sheep Sorrel IgE <0.10 KU/L; Short Ragweed Class 0; Short Ragweed IgE <0.10 KU/L; Sycamore Class 0; Sycamore IgE <0.10 KU/L; Timothy Class 0; Timothy IgE <0.10 KU/L; Walnut Tree Class 0; Walnut Tree IgE <0.10 KU/L; White Mulberry Class 0; White Mulberry IgE <0.10 KU/L
--- NOTE | 2019-08-30 17:59 | Discharge Summary ---
Date of Service August 22, 2019 Principal Diagnosis Atypical pneumonia Discharge Exam General- adult male, NAD Head- atraumatic Eyes- PERRL, EOMI, anicteric ENT- oropharynx clear Neck- supple, no JVD, no adenopathy, no thyromegaly; Lungs- bilateral wheez Heart- regular rhythm; no murmur, no gallop, no rub appreciated Abdomen- normal bowel sounds, soft, nontender. Extremities- no pretibial edema, no calf tenderness; peripheral pulses intact Neuro- alert, oriented x 3; PERRL, EOMI; machinist apprentice II-XII grossly intact, NON-focal. Skin- warm & dry. Left axilla small abscess s/p I&D in the ED Discharge Data Allergies Allergy/AdvReac Type Severity Reaction Status Date / Time No Known Allergies Allergy Unverified 08/19/19 00:06 Consultations 08/19/19 03:00 ED Decision to Admit Stat 08/19/19 04:33 Consult Pulmonology Routine 08/19/19 10:21 Consult Cardiology Routine Procedures Performed Operation Date: 08/20/19 13:00 Actual Procedures p Bronchoscopy, Endobronchial Ultrasound (EBUS)(Bilateral) - Liban larios MD Ordered Studies 08/19/19 02:44 CT angio chest PE protocol Urgent Hospital Course (1) Atypical pneumonia: IV Doxycycline I added Rocephin for further coverage Continue IV Solumedrol as it does appear that steroids previously gave benefit for patients symptoms. Consulted pulmonary, patient giselle be getting a bronch today. Patient has significant wheezing on exam today. check Legionella antigen urine check Mycoplasma IgG and IgM Pulmonology consult CTA chest ordered. Appreciate input from Pulmonary. Bronch with bal and EBUS-TBNA performed yesterday. Patient has 9% eosinophils on BAL fluid while on steroids. Also 29% lymphocytes. He does have a history of mold exposure from Nov to March in [facility] at [place] per his account. Question of possible hypersensitivity pneumonitis vs chronic eosinophilic pna. Regardless, treatment is similar. Avoid the precipitating organic cause and give a prolonged course of steroids. Possibility of sarcoid remains. EBUS-TBNA bx specimen results pending. IgE, serum allergy testing, HP panel, JONNATHAN and ANCA pending as well. Needs pulmonary follow up in 2 weeks with full PFTs. Continue predisone 40 mg for two weeks and then we will decide if we can taper down to 30 mg during the appt visit. Would also start him on Symbicort 80/4.5 BID. We can follow up lab results at that time as well in the clinic. Lastly, he is growing group c strep in his BAL fluid. Recommend 7 days of abx with cephalosporin. This was all communicated to the hospitalist team, FRANCESCO Morales. (2) Abscess of left axilla: I&D performed in the ED IV Doxycycline IV Rocephin wound care gave discharge instructions. will discharge on doxycycline. f/u with wound care (3) Hypomagnesemia: resolved. (4) Elevated troponin: He did not have chest pain therefore suspect this is related to demand ischemia. (5) Type II diabetes mellitus: Hold Metformin as he received IV dye Sliding scale insulin coverage Lantus 10 units ordered for now. (6) HTN (hypertension): Continue amlodipine and lisinopril (7) Hyperlipidemia: continue atorvastatin. Total Time Total Time Spent Total Time Spent (In Minutes): 35 Total Time Includes: Examination of the Patient, Discharge Planning and Medication Reconciliation Discharge Plan Discharge Items [facility] Disposition: [facility] Reason For Visit: PNEUMONIA, ELEVATED TROP Discharge Diagnosis: Pneumonia Condition on Discharge: Good Activity: Resume your previous activity Non-emergency contact: Primary Care Provider Call non-emergency contact if: you have any medication questions Follow-up/Referrals: Liban An MD [Physician] - (follow up in two weeks.) Brennen MAYA [Primary Care Provider] - Diet: Regular Addtl Attending Provider Instructions: Humulin will be at same time of 40 mg of prednisone. DM Educator spoke with patient and he is agreeable to insulin - once daily basal Difficult to determine dosing at this point since patient is receiving RTC Solumedrol. Could start with conservative outpatient dosing of 15-20 units (~0.2 units/kg) and increase dose by 3 units every 3 days until FBS <140 mg/dl. Continue with metformin as ordered - patient tolerates well and does not miss doses. Since patient started on PO prednisone - would recommend 0.4 units/kg (25 units) of NPH once daily WITH prednisone 40 mg daily. This would be in addition to Lantus. Prednisone 30 mg daily would require 20 units of NPH Prednisone 20 mg daily would require 15 units of NPH Prednisone 10 mg daily would require 10 units of NPH Continue antibiotics for 5 days. followup with wound care as per wound care instructions Pending Studies at Discharge: No Stand-Alone Forms: [facility] Skilled Items Patient informed of condition?: No Discharge Level of Care: Skilled Communicable Disease: No Discharge Prognosis: Stable Lines: None Urinary Catheter: No Medications and DC Order Prescriptions: New Lantus Solostar U-100 Insulin 100 unit/mL (3 mL) insulin pen 15 units SQ DAILY Qty: 15 RF: 0 prednisone 20 mg tablet 40 mg PO DAILY Qty: 60 RF: 0 Humulin R Regular U-100 Insuln 100 unit/mL solution 25 units SQ QAM Qty: 3 RF: 0 cefdinir 300 mg Capsule 300 mg PO Q12H Qty: 10 RF: 0 doxycycline hyclate 100 mg tablet,delayed release (DR/EC) 100 mg PO BID Qty: 10 RF: 0 Symbicort 80-4.5 mcg/actuation HFA aerosol inhaler 2 puffs INH BID Qty: 6.9 RF: 0 Continued amlodipine 10 mg Tablet 10 mg PO DAILY RF: 0 atorvastatin 40 mg Tablet 40 mg PO DAILY RF: 0 lisinopril 20 mg Tablet 20 mg PO DAILY RF: 0 metformin 1,000 mg Tablet 1,000 mg PO BID RF: 0 montelukast [Singulair] 10 mg Tablet 10 mg PO PM RF: 0 levalbuterol tartrate [Xopenex HFA] 45 mcg/actuation Hfa Aerosol Inhaler 2 inh INHALATION QID PRN (Reason: sob) RF: 0 ipratropium-albuterol 0.5 mg-3 mg(2.5 mg base)/3 mL Solution For Nebulization 3 ml INHALATION QID PRN (Reason: as directed) RF: 0 sodium chloride [[place] Nasal] 0.65 % Aerosol,Shock 2 spray INTRANASAL QID PRN (Reason: Congestion) RF: 0 Discharge Orders: Discharge Order (Routine); Ordered 08/22/19 Ordered By: Scooter Carrillo Admission Data Admit Date/Time: 08/19/19 02:38 Attending Provider: Scooter Carrillo Admit Provider: Jorge Castle Primary Care Provider: Brennen MAYA Other Providers: Jorge Castle ; Liban An ; Chauncey Joy Other Interventions: Discharge Summary Assessment (RN) Last Done: 08/22/19 17:26 DC Date/Time DO NOT enter until pt leaves facility: 08/22/19 21:24
== END 2019-08-22 21:24 | DRG 166 ==
LOC: ED 23:29 → 2E 08-19 02:38 → SUATTDRO 08-19 02:38 → 2E 08-19 03:07